=== PATIENT | male | born 1940 | race Caucasian/White ===

== ENCOUNTER → 2020-11-26 09:24 | Outpatient (CLI) | payer MEDICARE, SELFPAY ==
[2020-11-26 16:56] LABS: SARS-CoV-2 RNA PCR Negative
== END ==
PROVIDERS: PCP Internal Medicine; Visit Provider Nurse Practitioner
DX: R05 Cough (principal); Z20.822 Contact with and (suspected) exposure to COVID-19
CPT/HCPCS: C9803; U0003; U0005

== ENCOUNTER 2020-12-05 10:52 | Outpatient (CLI) | payer MEDICARE, SELFPAY ==
--- NOTE | ~2020-12-05 | XR_ITS ---
XR chest 2V DATE: 12/05/2020 11:11 INDICATION: Cough, dry to productive, for 6 months TECHNIQUE: PA and lateral views COMPARISON: 02/15/2014 2 view chest FINDINGS: There is bilateral hyperinflation and relative flattening the diaphragm, consistent with CO PD. There is atelectasis and/or consolidation at the anterior segment of the right upper lobe, which may be consistent with pneumonia. Obstructing endobronchial lesion is not excluded. Continued short-term radiographic follow-up in 2-3 weeks is recommended to ensure complete clearing. This does not clear, then CT thorax would be recommended. The lungs otherwise are clear. Normal heart size. There is mild aortic tortuosity. Mild blunting of the right costophrenic angle may indicate small right pleural effusion. No left pleu ral effusion is evident. No pneumothorax. Diffuse osteopenia. Dextroscoliosis and degenerative spurring of the thoracic spine. There is chronic mild to moderate an terior wedging of an upper thoracic vertebral body. Multiple old right rib fracture deformities are again noted. IMPRESSION: New infiltrate and/atelectasis, anterior segment right upper lobe, which may be consisten t with pneumonia. Obstructing endobronchial lesion is not excluded. Recommend repeat chest regress in 2-3 weeks. If this does not clear, then CT thorax would be indicated. Reviewed, dictated and finalized at location B. IMPRESSION: New infiltrate and/atelectasis, anterior segment right upper lobe, which may be consistent with pneumonia. Obstructing endobronchial lesion is not excluded. Recommend repeat chest regress in 2-3 weeks. If this does not clear, then CT thorax would be indicated.
[2020-12-05 11:48] LABS: Hematocrit 39.3 % (42.0-52.0); Hemoglobin 12.4 g/dL (14.0-18.0); Mean Corpuscular HGB Conc 31.6 g/dl (32-36); Mean Corpuscular Hemoglobin 29.2 pg (26-34); Mean Corpuscular Volume 92.5 fl (80-100); Mean Platelet Volume 10.4 fl (7.4-10.4); Platelet Count Result 353 k/mm3 (150-375); Red Blood Count 4.25 M/mm3 (4.6-6.20); Red Cell Distribution Width 12.9 % (11.5-14.5); White Blood Count 15.6 K/mm3 (4.5-10.0)
[2020-12-05 12:10] LABS: Alanine Aminotransferase 13 U/L (4-50); Albumin Level 3.8 g/dL (3.5-5.1); Alkaline Phosphatase 91 U/L (38-126); Anion Gap 8 mmol/L (8-16); Aspartate Amino Transferase 22 U/L (17-59); Bilirubin,Total 0.8 mg/dL (0.2-1.3); Blood Urea Nitrogen 19 mg/dL (9-20); Carbon Dioxide 32 mmol/L (22-30); Chloride 93 mmol/L (98-107); Estimated Glomerular Filt Rate 53; Glucose 108 mg/dL (65-110); Potassium 4.3 mmol/L (3.4-5.0); Sodium 133 mmol/L (137-145)
[2020-12-05 12:42] LABS: Platelet Estimate Adequate (Adequate)
[2020-12-05 15:24] LABS: Lymphocytes Absolute Manual 0.78 K/mm3 (1.1-4.5); Monocytes Absolute Manual 1.09 K/mm3 (0.1-0.90); Monocytes Percent Manual 7 % (3-9); Neutrophils Percent Manual 88 % (46-73); Total Cells Counted 100
[2020-12-05 15:25] LABS: Hypochromasia 1+ (NORMAL)
== END 2020-12-05 10:53 | disposition home or self-care (01) ==
PROVIDERS: PCP Internal Medicine; Visit Provider Internal Medicine
DX: R05.9 Cough, unspecified (principal); R53.83 Other fatigue; R91.8 Other nonspecific abnormal finding of lung field
CPT/HCPCS: 36415; 71046; 80053; 82607; 84443; 85025

== ENCOUNTER 2020-12-19 13:43 | Outpatient (CLI) | payer MEDICARE, SELFPAY ==
--- NOTE | ~2020-12-19 | XR_ITS ---
EXAMINATION: XR chest 2V DATE: 12/19/2020 14:09 INDICATION: Pneumonia. Follow-up. TECHNIQUE: Frontal and lateral views of the chest were obtained. COMPARISON: Chest 2 views 12/05/2020 FINDINGS: There are airspace opacities in right middle lobe and anterior segment right upper lobe. No pleural effusion or pneumothorax. The heart size is normal. There are multiple old healed right rib fractures. IMPRESSION: 1. Persistent airspace opacities in right middle lobe and anterior segment right upper lobe suspiciou s for malignancy and atelectasis versus pneumonia. Chest CT with contrast is recommended. Reviewed, dictated and finalized at location A. IMPRESSION: 1. Persistent airspace opacities in right middle lobe and anterior segment righ t upper lobe suspicious for malignancy and atelectasis versus pneumonia. Chest CT with contrast is recommended.
== END 2020-12-19 13:44 | disposition home or self-care (01) ==
LOC: ANHIMG 13:45
PROVIDERS: PCP Internal Medicine; Visit Provider Nurse Practitioner
DX: J18.9 Pneumonia, unspecified organism (principal); R91.8 Other nonspecific abnormal finding of lung field
CPT/HCPCS: 71046

== ENCOUNTER 2020-12-25 09:47 | Outpatient (CLI) | payer MEDICARE, SELFPAY ==
--- NOTE | ~2020-12-25 | CT_ITS ---
EXAMINATION: CT diagnostic chest w con DATE: 12/25/2020 10:23 INDICATION: Abnormal findings on diagnostic imaging, persistent right middle lobe opacity on chest ra diograph TECHNIQUE: Transaxial computed tomographic images of the chest were obtained after the administration of 75 cc of Omnipaque 350 intravenous contrast. The dose-length product (DLP) was 177.38 mGy-cm. Ite rative reconstruction was used. COMPARISON: Chest radiographs dated 12/19/2020 and 12/05/2020 FINDINGS: The right middle lobe is essentially collapsed. There are air bronchograms without an ident ified endobronchial lesion. There are areas of cavitation at the anterior/peripheral aspect of the ri ght middle lobe. Subtle groundglass nodular opacities are seen in the right lower lobe. There is no p leural effusion or pneumothorax. No pathologically enlarged thoracic lymph nodes are identified. The heart size is normal. Cysts of the partially imaged left kidney measure up to 6 cm. There are stones of the right kidney measuring up to 6 mm. A large volume of colonic stool is noted. Fluid attenuation lesions of the liver likely represent cysts. There are bridging osteophytes at multiple levels in th e spine, consistent with diffuse idiopathic skeletal hyperostosis (DISH). IMPRESSION: 1. Near complete collapse of the right middle lobe with air bronchograms but no endobronchial lesion identified. Associated cavitation at the periphery of the right middle lobe could represent an infect ious etiology. Bronchoscopy is recommended. Reviewed, dictated and finalized at location A. IMPRESSION: 1. Near complete collapse of the right middle lobe with air bronchograms but no endobronchial lesion identified. Associated cavitation at the periphery of the right middle lobe could represent an infectious etiology. Bronchoscopy is chi mmended.
== END 2020-12-25 09:48 | disposition home or self-care (01) ==
LOC: ANHIMG 09:48
PROVIDERS: PCP Internal Medicine; Visit Provider Nurse Practitioner
DX: R91.8 Other nonspecific abnormal finding of lung field (principal); J98.19 Other pulmonary collapse
CPT/HCPCS: 71260; Q9967

== ENCOUNTER 2020-12-31 10:19 | Outpatient (CLI) | payer MEDICARE, SELFPAY | END 2020-12-31 10:20 | disposition home or self-care (01) | LOC: ANHLAB 10:20 | PROVIDERS: PCP Internal Medicine; Visit Provider Internal Medicine Pulmonary Disease | DX: R93.89 Abnormal findings on diagnostic imaging of other specified body structures (principal) | CPT/HCPCS: 87070; 87205 ==

== ENCOUNTER → 2021-01-10 00:26 | Outpatient (CLI) | payer MEDICARE, SELFPAY ==
[2021-01-10 17:39] LABS: SARS-CoV-2 RNA PCR Negative
== END ==
PROVIDERS: PCP Internal Medicine; Visit Provider Internal Medicine Pulmonary Disease
DX: Z01.812 Encounter for preprocedural laboratory examination (principal); Z20.822 Contact with and (suspected) exposure to COVID-19
CPT/HCPCS: C9803; U0003; U0005

== ENCOUNTER 2021-01-12 11:32 | Outpatient (CLI) | payer MEDICARE, SELFPAY ==
[2021-01-12 12:15] LABS: Basophils Percent Auto 0.6 % (0.2-1.2); Eosinophils Absolute Auto 0.1 K/mm3 (0-0.3); Eosinophils Percent Auto 2.2 % (0-4.4); Hematocrit 41.1 % (42.0-52.0); Hemoglobin 12.7 g/dL (14.0-18.0); Immature Granulocyte Absolute 0.01 K/mm3 (0.00-0.031); Immature Granulocyte Percent A 0.2 % (0-0.5); Lymphocytes Absolute Auto 0.74 K/mm3 (0.9-3.2); Lymphocytes Percent Auto 11.6 % (18.3-44.2); Mean Corpuscular HGB Conc 30.9 g/dl (32-36); Mean Corpuscular Hemoglobin 29.4 pg (26-34); Mean Corpuscular Volume 95.1 fl (80-100); Mean Platelet Volume 11.9 fl (7.4-10.4); Monocytes Absolute Auto 0.6 K/mm3 (0.1-0.6); Monocytes Percent Auto 9.1 % (2.6-8.5); Neutrophils Absolute Auto 4.9 K/mm3 (1.3-6.7); Neutrophils Percent Auto 76.3 % (45.5-73.1); Platelet Count Result 177 k/mm3 (150-375); Red Blood Count 4.32 M/mm3 (4.6-6.20); Red Cell Distribution Width 15.6 % (11.5-14.5); White Blood Count 6.4 K/mm3 (4.5-10.0)
[2021-01-12 12:27] LABS: INR 1.1; Prothrombin Time 13.8 Seconds (11.1-14.7)
[2021-01-12 12:28] LABS: Partial Thromboplastin Time 31.4 SECONDS (22.3-36.8)
[2021-01-12 13:21] LABS: Alanine Aminotransferase 11 U/L (4-50); Alkaline Phosphatase 91 U/L (38-126); Anion Gap 12 mmol/L (8-16); Aspartate Amino Transferase 24 U/L (17-59); Bilirubin,Total 0.6 mg/dL (0.2-1.3); Blood Urea Nitrogen 22 mg/dL (9-20); Calcium 9.1 mg/dL (8.4-10.2); Carbon Dioxide 26 mmol/L (22-30); Chloride 103 mmol/L (98-107); Estimated Glomerular Filt Rate > 60; Glucose 79 mg/dL (65-110); Potassium 4.4 mmol/L (3.4-5.0); Sodium 141 mmol/L (137-145)
== END 2021-01-12 11:33 | disposition home or self-care (01) ==
LOC: ANHLAB 11:34
PROVIDERS: PCP Internal Medicine; Visit Provider Internal Medicine Pulmonary Disease
DX: R05.9 Cough, unspecified (principal)
CPT/HCPCS: 36415; 80053; 85025; 85610; 85730

== ENCOUNTER 2021-01-13 01:45 | Day surgery (SDC) | payer MEDICARE, SELFPAY ==
[2021-01-08 12:53] VITALS: BMI 19.5
[2021-01-13] VITALS (8 sets, daily range): BP systolic 115–165; BP diastolic 54–76; PULSE 50–59; RESP 14–20; TEMP 36.1–36.8; O2SAT 100
--- NOTE | ~2021-01-13 | XR_ITS ---
XR chest 1V portable 01/13/2021 14:20 Indication: Post bronchoscopy. Procedure: AP portable chest Comparison: 01/13/2021 Findings: There is right middle lobe consolidation which may represent atelectasis or pneumonia. Ther e is lucency right lower lateral thorax which extends outside of the chest wall, consistent with a sk infold. No definite pneumothorax. Multiple healed right rib fractures. No significant effusion. Left lung clear. Borderline heart size. No acute osseous abnormality. Impression: 1: Slightly increased right middle lobe consolidation which may represent atelectasis or pneumonia. F luid from lavage is also a consideration. Reviewed, dictated and finalized at location A. GER CAFE Impression: 1: Slightly increased right middle lobe consolidation which may represent atele ctasis or pneumonia. Fluid from lavage is also a consideration.
--- NOTE | ~2021-01-13 | XR_ITS ---
EXAMINATION: XR chest 1V portable INDICATION: Right middle lobe collapse TECHNIQUE: Portable AP chest at 1133 hours COMPARISON: 12/25/2020 FINDINGS: There is mildly improved aeration of the right middle lobe. No pleural effusion or pneumoth orax is identified. The cardiomediastinal silhouette is normal. IMPRESSION: 1. Improved aeration of the right middle lobe, possibly resolving pneumonia. Reviewed, dictated and finalized at location B. N ELEVATOR OPERATOR
--- NOTE | ~2021-01-13 | XR_ITS ---
EXAMINATION: XR fl bronchoscopy w imaging INDICATION: Bronchoscopy TECHNIQUE: Single fluoroscopic image is submitted for review. Total fluoroscopic time is 67.4 seconds . COMPARISON: None available FINDINGS: Fluoroscopic image demonstrates a bronchoscope in the right lower lobe. Please refer to pro cedure note for full details. IMPRESSION: 1. Please refer to procedure note for full details. Reviewed, dictated and finalized at location B. OF MARKETING ADOMETRY
--- NOTE | 2021-01-13 09:35 | WPDANESEPPF ---
Anes - Initial Pre Proc Eval Procedure: Operation Date: 01/13/21 13:15 Proposed Procedures p Flexible Bronchoscopy w Fluoroscopy - Chris Milton MD Date/Time: 01/13/21 09:35 Surgeon: Chris Milton MD Pre Op Diagnosis: chronic cough Patient Data Age: 80 Gender: M Height: 1.75 m Weight: 60 kg Allergies Allergy/AdvReac Type Severity Reaction Status Date / Time peanut Allergy Severe Hives Verified 01/13/21 11:30 Home Medications Medication Instructions Recorded Confirmed Type mupirocin 2 % topical ointment 1 applic TOPICAL TID 10 Days #22 g 01/07/21 01/08/21 Rx finasteride 5 mg PO DAILY 01/08/21 01/08/21 History Patient hx anesthesia problems: none Family hx anesthesia problems: none Results Review: All pre-operative results and documents have been reviewed as part of the pre-operative evaluation. FORMERLY [facility], [facility] Past Medical History Medical History (Updated 01/13/21 @ 09:35 by Camilo Hartman MD) BPH (benign prostatic hyperplasia) Essential (primary) hypertension Memory loss Screening for lipid disorders Family History Family History Sibling Patient's brother is in good health Family history of malignant neoplasm Patient's brother is Father Family history of malignant neoplasm Other Diabetes mellitus Family history of heart disease in male family member before age 55 Social History Social History (Updated 01/07/21 @ 14:22 by Carlie Chahal) Smoking packs per day: 1 Smoking cigarettes per day: 20.0 Years smoked: 5 Smoking pack-years: 5.00 Smoking status: Never smoker Second hand tobacco smoke exposure: No Smoking end date: 03/07/88 Alcohol intake: former Substance use: never Substance use type: does not use Living arrangements: with family Spiritual care concerns: No Anes - Eval Final PreProcedure Day of Procedure 01/13/21 09:35 Patient weight: normal Heart: regular rate and rhythm Lungs: clear to auscultation and normal air movement Airway: Mallampati scale class II Neurological: alert and oriented Last oral intake: >/= 8 hours ASA classification: III Emergent: no Anesthetic plan: proceed Anesthesia type and monitoring: general LMA and ETT Results Review: All pre-operative results and documents have been reviewed as part of the pre-operative evaluation. Informed Consent: The patient's anesthetic plan and its attendant risks and benefits were discussed with the patient/family/POA. Questions were solicited and answers provided to the satisfaction of the patient/family/POA.
--- NOTE | 2021-01-13 11:36 | ECG_ITS ---
Measurements Intervals [place] Rate: 48 P: 55 AK: 168 QRS: 35 QRSD: 109 T: 52 QT: 450 QTc: 405 Interpretive Statements SINUS BRADYCARDIA DELAYED PRECORDIAL R/S TRANSITION ABNORMAL ECG Electronically Signed On 01-13-2021 12:12:37 COMMERCIAL TIRE SERVICE TECHNICIAN by Chad Knight D.O.
[2021-01-13] MEDS: LACTATED RINGERS 1,000 ML 150 ML IV CONT (11:41)
--- NOTE | 2021-01-13 12:47 | PM.IMHP ---
H&P: HPI History of Present Illness Date/Time: 01/13/21 12:47 Chief Complaint: cough for bronchoscopy Narrative: 01/13/21 Patient presents today for outpatient bronchoscopy. See below for details regarding symptoms. Overall patient cough has improved but cough still persists with white phlegm. No hemoptysis. Appetite improved with weight gain of 4 pounds. Denies fever, chills, rigors or chest pains. From office visit on 12/31/2020: This is a new patient encounter for collapse of the right middle lobe 81-year-old male with a history of hypertension and benign prostatic hyperplasia seen by his primary physician Dr. Abhilash Ramos on 12/02/2020 with cough for several months, fatigue, memory loss, and weight loss and a chest x-ray on 12/05/20 with infiltrate RUL and RLL new compared to 02/15/2014 and not changed with cefuroxime X [address] scan chest 12/25/20 with collapse of RML with no endobronchial mass seen and with distal cavitation. Today the patient tells me he has had a chronic cough for over 2 years. He is here by his and she helps with the interview. The cough has been worse over the last 3 months he coughs approximately 10 times a day usually lasting 1-5 minutes. Most of the time this cough is dry but intermittently he has neutral or clear colored phlegm. He has never had any hemoptysis. The cough is worse at night. Patient denies fever, chills, rigors, chest pain and no shortness of breath at rest. He does have some increased dyspnea on exertion and he has recently stopped mowing his lawn. The patient also has weight loss over the last 3-4 months from 162 lb down to 129 lb. Today he weighs 133. Patient denies any aspiration of food, prior cancers, or trauma. Patient smoked tobacco from age [age] at a half pack per day for 5 pack years. He patient was exposed has been exposed to secondhand smoke through 2005 from his current . She now smokes outside with the door closed behind her since 2005. 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 Patient is not vaccinated for COVID and is unwilling at this time because he does not believe in it. Patient has never received influenza vaccine. DATA: EXAMINATION: CT diagnostic chest w con DATE: 12/25/2020 10:23 INDICATION: Abnormal findings on diagnostic imaging, persistent right middle lobe opacity on chest radiograph TECHNIQUE: Transaxial computed tomographic images of the chest were obtained after the administration of 75 cc of Omnipaque 350 intravenous contrast. The dose-length product (DLP) was 177.38 mGy-cm. Iterative reconstruction was used. COMPARISON: Chest radiographs dated 12/19/2020 and 12/05/2020 FINDINGS: The right middle lobe is essentially collapsed. There are air bronchograms without an identified endobronchial lesion. There are areas of cavitation at the anterior/peripheral aspect of the right middle lobe. Subtle groundglass nodular opacities are seen in the right lower lobe. There is no pleural effusion or pneumothorax. No pathologically enlarged thoracic lymph nodes are identified. The heart size is normal. Cysts of the partially imaged left kidney measure up to 6 cm. There are stones of the right kidney measuring up to 6 mm. A large volume of colonic stool is noted. Fluid attenuation lesions of the liver likely represent cysts. There are bridging osteophytes at multiple levels in the spine, consistent with diffuse idiopathic skeletal hyperostosis (DISH). IMPRESSION: 1. Near complete collapse of the right middle lobe with air bronchograms but no endobronchial lesion identified. Associated cavitation at the periphery of the right middle lobe could represent an infectious etiology. Bronchoscopy is recommended. 12/19/20: INDICATION: Pneumonia. Follow-up. TECHNIQUE: Frontal and lateral views of the chest were obt
[2021-01-13] MEDS: SODIUM CHLORIDE 0.9% IV 500 ML BAG 155 ML IRRIGATION (14:07)
[2021-01-13 16:23] LABS: Appearance Bronchial Fluid Hazy; Color Bronchial Fluid Colorless; Eosinophils Bronchial Fluid 7 %; Lymphocytes Bronchial Fluid 48 %; Macrophages Bronchial Fluid 19; Neutrophils Bronchial Fluid 26 %; Source Bronchial Fluid Bronchial Lavage
== END 2021-01-13 16:10 | disposition home or self-care (01) ==
PROVIDERS: PCP Internal Medicine; Visit Provider Internal Medicine Pulmonary Disease
PROC: BB1DZZZ Fluoroscopy of Upper Airways (ICD-10-PCS; CPT 31624; principal; 2021-01-13 13:00)
DX: J98.19 Other pulmonary collapse (principal); R05.3 Chronic cough; N40.0 Benign prostatic hyperplasia without lower urinary tract symptoms; I10 Essential (primary) hypertension; R00.1 Bradycardia, unspecified; Z87.891 Personal history of nicotine dependence
CPT/HCPCS: 31623; 31628; 31624; 71045; 85999; 87015; 87070; 87071; 87102; 87106; 87116; 87205; 87206; 88104; 88108; 88160; 88305; 88312; 93005; C9803; J2704; J7040; J7120; U0003; U0005

== ENCOUNTER → 2021-01-24 08:43 | Outpatient (CLI) | payer MEDICARE, SELFPAY ==
[2021-01-24 18:14] LABS: SARS-CoV-2 RNA PCR Negative
== END ==
PROVIDERS: PCP Internal Medicine
DX: Z20.822 Contact with and (suspected) exposure to COVID-19 (principal)
CPT/HCPCS: C9803; U0003; U0005

== ENCOUNTER 2021-01-27 10:41 | Outpatient (CLI) | payer MEDICARE, SELFPAY ==
[2021-01-27 11:26] LABS: Anion Gap 6 mmol/L (8-16); Blood Urea Nitrogen 25 mg/dL (9-20); Calcium 9.3 mg/dL (8.4-10.2); Carbon Dioxide 31 mmol/L (22-30); Chloride 101 mmol/L (98-107); Cholesterol 132 mg/dL (0-200); Estimated Glomerular Filt Rate > 60; Glucose 84 mg/dL (65-110); HDL Direct 46 mg/dL; Potassium 4.6 mmol/L (3.4-5.0); Sodium 138 mmol/L (137-145); Triglycerides 80 mg/dL (<150)
[2021-01-27 11:39] LABS: LDL Cholesterol Direct 62 mg/dL
== END 2021-01-27 10:42 | disposition home or self-care (01) ==
LOC: ANHLAB 10:42
PROVIDERS: PCP Internal Medicine; Visit Provider Nurse Practitioner
DX: I10 Essential (primary) hypertension (principal); Z13.220 Encounter for screening for lipoid disorders
CPT/HCPCS: 36415; 80048; 80061

== ENCOUNTER 2021-02-09 08:53 | Outpatient (CLI) | payer MEDICARE, SELFPAY ==
--- NOTE | ~2021-02-09 | XR_ITS ---
EXAMINATION: XR chest 2V DATE: 02/09/2021 09:12 INDICATION: Abnormal chest radiograph TECHNIQUE: PA and lateral views of the chest are obtained. COMPARISON: 01/13/2021 FINDINGS: The lungs are free of acute opacities. The right middle lobe appears to be well aerated. Th ere is no pleural effusion or pneumothorax. The cardiomediastinal silhouette is normal. There are jordana dging osteophytes at multiple levels in the spine, consistent with diffuse idiopathic skeletal hypero stosis (DISH). Multiple healed right-sided rib fractures are noted. IMPRESSION: 1. Well aerated right middle lobe without acute cardiopulmonary abnormality. Reviewed, dictated and finalized at location A. FEATHER MACHINE OPERATOR
== END 2021-02-09 08:54 | disposition home or self-care (01) ==
LOC: ANHIMG 08:58
PROVIDERS: PCP Internal Medicine; Visit Provider Internal Medicine Pulmonary Disease
DX: R93.89 Abnormal findings on diagnostic imaging of other specified body structures (principal)
CPT/HCPCS: 71046

== ENCOUNTER 2021-02-09 13:43 | Outpatient (CLI) | payer MEDICARE, SELFPAY ==
[2021-02-09 15:37] LABS: SARS-CoV-2 RNA PCR Negative (Negative)
== END 2021-02-09 13:44 | disposition home or self-care (01) ==
PROVIDERS: PCP Internal Medicine
DX: Z03.818 Encounter for observation for suspected exposure to other biological agents ruled out (principal); Z20.822 Contact with and (suspected) exposure to COVID-19
CPT/HCPCS: C9803; U0003; U0005

== ENCOUNTER 2021-03-02 13:17 | Outpatient (CLI) | payer MEDICARE, SELFPAY ==
--- NOTE | ~2021-03-02 | CT_ITS ---
EXAMINATION:CT diagnostic chest wo con DATE: 03/02/2021 13:51 INDICATION: Abnormal findings on diagnostic imaging. Right middle lobe collapse. TECHNIQUE: Computed tomography (CT) of the chest was performed without intravenous contrast. Automate d exposure control and iterative reconstruction technique were employed. The dose-length product (DLP ) was 155.48 mGy-cm. COMPARISON: Chest CT 12/25/2020 FINDINGS: There is mild scarring at the lung apices. There is mild bronchiectasis in right middle lob e. There is a pneumatocele in right middle lobe. There is mild atelectasis bilaterally. Again seen is mild rounded atelectasis at right lung base. There are tree-in-bud opacities and mild groundglass op acities in right lower lobe, consistent with pneumonia. No pleural effusion. The heart size is normal . There are coronary artery calcifications. No pericardial effusion. There are cysts in the liver judie suring up to 10 mm. There are dystrophic calcifications in right adrenal gland. There are cysts in th e kidneys measuring up to 5.6 cm on the left. Partially visualized is a 4 mm stone in right kidney. T here are multiple old healed right rib fractures. There is kyphosis of thoracic spine. There are brid ging endplate osteophytes at multiple levels in the spine, consistent with diffuse idiopathic skeleta l hyperostosis (DISH). There is a hemangioma in T1 vertebral body. There is mild chronic anterior wed ging of multiple thoracic vertebral bodies. IMPRESSION: 1. Chronic mild pneumonia in right lower lobe. 2. Improved aeration of right middle lobe. Reviewed, dictated and finalized at location B. PUMPER
== END 2021-03-02 13:18 | disposition home or self-care (01) ==
PROVIDERS: PCP Internal Medicine; Visit Provider Internal Medicine Pulmonary Disease
DX: J18.9 Pneumonia, unspecified organism (principal)
CPT/HCPCS: 71250

== ENCOUNTER 2021-03-16 11:14 | Outpatient (CLI) | payer MEDICARE, SELFPAY ==
--- NOTE | ~2021-03-16 | XR_ITS ---
EXAMINATION: XR chest 2V DATE: 03/16/2021 11:29 INDICATION: Abnormal findings on diagnostic imaging. Pneumonia. TECHNIQUE: Frontal and lateral views of the chest were obtained. COMPARISON: Chest 2 views 02/09/2021, chest CT 03/02/2021 FINDINGS: There is mild scarring at right lung base. There is chronic volume loss of right hemithorax with multiple old healed right rib fractures indenting the chest wall and blunting of right lateral costophrenic angle. No pleural effusion or pneumothorax. The heart size is normal. There is kyphosis of upper thoracic spine with mild chronic anterior wedging of multiple vertebral bodies. IMPRESSION: 1. Mild scarring at right lung base. Reviewed, dictated and finalized at location B. ING ADMIN
== END 2021-03-16 11:15 | disposition home or self-care (01) ==
LOC: ANHIMG 11:18
PROVIDERS: PCP Internal Medicine; Visit Provider Internal Medicine Pulmonary Disease
DX: R93.89 Abnormal findings on diagnostic imaging of other specified body structures (principal); R91.8 Other nonspecific abnormal finding of lung field
CPT/HCPCS: 71046

== ENCOUNTER 2021-07-16 14:09 | Outpatient (CLI) | payer MEDICARE, SELFPAY ==
[2021-07-16 14:51] LABS: Anion Gap 7 mmol/L (8-16); Blood Urea Nitrogen 22 mg/dL (9-20); Calcium 8.5 mg/dL (8.4-10.2); Carbon Dioxide 28 mmol/L (22-30); Chloride 105 mmol/L (98-107); Estimated Glomerular Filt Rate 53; Glucose 92 mg/dL (65-110); Potassium 4.4 mmol/L (3.4-5.0); Sodium 140 mmol/L (137-145)
== END 2021-07-16 14:10 | disposition home or self-care (01) ==
PROVIDERS: PCP Internal Medicine; Visit Provider Nurse Practitioner
DX: R60.9 Edema, unspecified (principal)
CPT/HCPCS: 36415; 80048

== ENCOUNTER 2021-07-20 10:33 | Emergency (ER) | payer MEDICARE, SELFPAY ==
--- NOTE | ~2021-07-20 | XR_ITS ---
EXAMINATION: XR foot RT min 3V DATE: 07/20/2021 12:52 INDICATION: Right foot pain. TECHNIQUE: 4 views of right foot were obtained. COMPARISON: None. FINDINGS: Bone alignment is normal. No fracture. There is an old healed fracture deformity of fourth proximal phalanx. There is mild osteoarthritis of first metatarsophalangeal joint and some the interp halangeal joints. There is heterotopic ossification distal to lateral malleolus, likely from old inju ry. There are enthesophytes at the posterior and plantar aspects of calcaneal tuberosity. IMPRESSION: 1. Mild polyarticular osteoarthritis. Reviewed, dictated and finalized at location B.
--- NOTE | ~2021-07-20 | CT_ITS ---
EXAMINATION: CT brain wo con DATE: 07/20/2021 13:01 INDICATION: Syncope. Diplopia. TECHNIQUE: Computed tomography (CT) of the head was performed without intravenous contrast. The mA wa s adjusted according to patient size. Iterative reconstruction technique was employed. The dose-lengt h product was 605.33 mGy-cm. 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 There are scattered areas of low attenuation i n the cerebral white matter. There is no intracranial hemorrhage, acute infarction, or abnormal intra cranial mass lesion. The ventricles are normal in size. There are likely changes of ocular lens repla cement surgeries. There is mild mucosal thickening in the paranasal sinuses. The mastoid air cells ar e normal. IMPRESSION: 1. 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 2. Moderate nonspecific cerebral white matter disease, which likely represents chronic small vessel i schemic disease. Reviewed, dictated and finalized at location B. IMPRESSION: 1. 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 2. Moderate nonspecific cerebral white matter disease, which likely represents chronic small vessel ischemic disease.
--- NOTE | ~2021-07-20 | CT_ITS ---
EXAMINATION: CT thoracic lumbar wo con DATE: 07/20/2021 13:01 INDICATION: Right-sided mid back pain. TECHNIQUE: Computed tomography (CT) of the thoracic and lumbar spine was performed without intravenou s contrast. Automated exposure control and iterative reconstruction technique were employed. The dose -length product was 776.87 mGy-cm. COMPARISON: None FINDINGS: CT THORACIC SPINE: There is 12 degrees dextroscoliosis of thoracic spine. There is kyphosis of thorac ic spine. There is a hemangioma in T1 vertebral body. There is mild chronic anterior wedging of multi ple vertebral bodies. There are bridging endplate osteophytes from T7 to L1, consistent with diffuse idiopathic skeletal hyperostosis (DISH). There is mildly decreased disc height at multiple levels. Th ere is moderately decreased disc height at C5-C6. There is multilevel facet joint osteoarthritis, sev ere on the left at T2-T3. There is mild right neural foraminal stenosis at T1-T2. There is mild left neural foraminal stenosis at T1-T2 and T2-T3. No central canal stenosis. There are multiple old heale d right rib fractures. CT LUMBAR SPINE: There are stones in the kidneys measuring up to 8 mm on the right. Partially visuali zed is a 5.0 cm cyst in left kidney. There is 3 mm retrolisthesis of L5 on S1. There are Schmorl's no liliya at multiple levels. There is mildly decreased disc height at L1-L2 and L2-L3 and severely decreas ed disc height at L5-S1. The following disc levels are specifically discussed: L1-L2: The disc is bulging. There is mild bilateral facet joint osteoarthritis. There is mild bilater al neural foraminal stenosis. There is mild central canal stenosis. L2-L3: The disc is bulging. There is severe bilateral facet joint osteoarthritis. There is mild bilat eral neural foraminal stenosis. There is mild central canal stenosis. L3-L4: The disc is bulging. There is severe bilateral facet joint osteoarthritis. There is mild bilat eral neural foraminal stenosis. There is mild central canal stenosis. L4-L5: The disc is bulging. There is severe bilateral facet joint osteoarthritis. There is mild bilat eral neural foraminal stenosis. There is mild central canal stenosis. L5-S1: The disc is bulging. There is moderate bilateral facet joint osteoarthritis. There is moderate bilateral neural foraminal stenosis. There is mild central canal stenosis. IMPRESSION: 1. No fracture. 2. Severe lower lumbar spondylosis. 3. Mild thoracic spondylosis. 4. DISH. 5. Thoracic kyphosis and dextroscoliosis. Reviewed, dictated and finalized at location B.
[2021-07-20 10:59] VITALS: BP 175/95; PULSE 66; RESP 16; TEMP 36.2; O2SAT 100
[2021-07-20 11:21] VITALS: RESP 17; O2SAT 100
--- NOTE | 2021-07-20 11:21 | ECG_ITS ---
Measurements Intervals [place] Rate: 56 P: 2 ND: 137 QRS: 20 QRSD: 122 T: 47 QT: 443 QTc: 430 Interpretive Statements SINUS BRADYCARDIA INTRAVENTRICULAR CONDUCTION DELAY BASELINE ARTIFACT- I, II, III, AVR, AVL, AVF BORDERLINE ECG Electronically Signed On 07-20-2021 11:29:19 CDT by Chad Knight D.O.
--- NOTE | 2021-07-20 12:17 | ED.FALL ---
HPI - Fall General Chief Complaint: Fall Stated Complaint: Fall Yesterday, Rib Pain Time Seen by Provider: 07/20/21 11:50 History of Present Illness HPI Narrative: 81 y/o male presents to ER today after having syncopal episode at home yesterday evening. He has a history of getting near syncope with his migraines. He normally can lower himself to the ground until it resolves and doesn't full pass out. Yesterday evening the sensation came on faster than normal and he did pass out and fell backward. He hit the back of his head. He denies having any headache, neck pain or dizziness. He does report mid to lower back pain. No numbnes or tingling. No extremity weakness. Denies having any chest pain. No shortness of breath. No n/v/d. He has some pain in right 4th toe. He has been having swelling in both of his feet but says that it is actually somewhat better today. Related Data Allergies Allergy/AdvReac Type Severity Reaction Status Date / Time peanut Allergy Severe Hives Verified 07/20/21 11:35 Review of Systems Constitutional: Constitutional: Denies chills, Denies fatigue, Denies fever(s) and Denies weakness Eyes: Eyes: Reports no additional eye complaints ENT: Denies vertigo and Denies dizziness Cardiovascular: Cardiovascular: Denies chest pain, Denies rapid heart rate and Denies radiating jaw, neck or arm pain Respiratory: Respiratory: Denies chest congestion, Denies cough, Denies dyspnea and Denies wheezing Gastrointestinal: Gastrointestinal: Denies abdominal pain, Denies diarrhea, Denies nausea and Denies vomiting Genitourinary: Genitourinary: Reports no additional male genitourinary complaints Musculoskeletal: Musculoskeletal: Reports back pain and Reports arthralgias Integumentary/Breasts: Skin/Breast: Denies rash Neurologic: Denies dizziness, Reports syncope, Denies headache(s) and Denies focal weakness Psychiatric: Psychiatric: Reports no additional psychiatric complaints Endocrine: Endocrine: Reports no additional endocrine complaints and Denies fatigue PMFSH Past Medical History Medical History BPH (benign prostatic hyperplasia) Essential (primary) hypertension Memory loss Screening for lipid disorders Family History Family History Sibling Patient's brother is in good health Family history of malignant neoplasm Patient's brother is Father Family history of malignant neoplasm Other Diabetes mellitus Family history of heart disease in male family member before age 55 Social History Social History Smoking packs per day: 1 Smoking cigarettes per day: 20.0 Years smoked: 5 Smoking pack-years: 5.00 Second hand tobacco smoke exposure: No Smoking end date: 03/07/88 Alcohol intake: former Substance use: never Substance use type: does not use Spiritual care concerns: No Exam Const: General: healthy appearing and alert Orientation/consciousness: patient oriented x3 HENMT: Head: normal to inspection Eyes: Conjunctivae: conjunctivae normal Pupils: Equal, round and reactive pupils present EOM: EOMs intact bilaterally Direct Ophthalmoscopy: no photophobia Neck: Neck: normal visual inspection Chest: Chest palpation & inspection: normal inspection of the chest Resp: Effort & Inspection: normal respiratory effort Auscultation: clear to auscultation bilaterally Cardio: Rate: regular rate Rhythm: regular rhythm GI: GI Palp: Yes Soft to palpation, No Tenderness to palpation present (GI) and No Guarding due to palpation present (GI) Auscultation: normal bowel sounds Back/Spine/Pelvis: Back: no CVA tenderness Skin: General skin exam: normal color Wounds: wound noted Neuro: General: patient oriented x3 and moves all extremities Extrem: General: edema bilateral (pedal 2+) Psych: Me
[2021-07-20 12:30] LABS: Basophils Percent Auto 0.5 % (0.2-1.2); Eosinophils Absolute Auto 0.1 K/mm3 (0-0.3); Eosinophils Percent Auto 1.5 % (0-4.4); Hematocrit 41.8 % (42.0-52.0); Immature Granulocyte Absolute 0.01 K/mm3 (0.00-0.031); Immature Granulocyte Percent A 0.2 % (0-0.5); Immature Platelet Fraction Pct 8.6 % (0.9-11.2); Lymphocytes Absolute Auto 0.66 K/mm3 (0.9-3.2); Lymphocytes Percent Auto 11.4 % (18.3-44.2); Mean Corpuscular HGB Conc 31.1 g/dl (32-36); Mean Corpuscular Hemoglobin 30.1 pg (26-34); Mean Corpuscular Volume 96.8 fl (80-100); Monocytes Absolute Auto 0.8 K/mm3 (0.1-0.6); Monocytes Percent Auto 13.6 % (2.6-8.5); Neutrophils Absolute Auto 4.2 K/mm3 (1.3-6.7); Neutrophils Percent Auto 72.8 % (45.5-73.1); Platelet Count Result 140 k/mm3 (150-375); Red Blood Count 4.32 M/mm3 (4.6-6.20); Red Cell Distribution Width 13.5 % (11.5-14.5); White Blood Count 5.8 K/mm3 (4.5-10.0)
[2021-07-20 12:38] VITALS: BP 148/77; PULSE 57; RESP 19; O2SAT 99
[2021-07-20 12:40] LABS: Alanine Aminotransferase 10 U/L (6-50); Albumin Level 3.9 g/dL (3.5-5.1); Alkaline Phosphatase 105 U/L (38-126); Anion Gap 2 mmol/L (8-16); Aspartate Amino Transferase 25 U/L (17-59); Bilirubin,Total 0.6 mg/dL (0.2-1.3); Blood Urea Nitrogen 19 mg/dL (9-20); Calcium 8.5 mg/dL (8.4-10.2); Carbon Dioxide 31 mmol/L (22-30); Chloride 104 mmol/L (98-107); Estimated CRCL calculation 38 ml/min; Estimated Glomerular Filt Rate 53; Glucose 93 mg/dL (65-110); Potassium 4.4 mmol/L (3.4-5.0); Sodium 137 mmol/L (137-145)
--- NOTE | 2021-07-20 13:47 | PC.NURSE ---
called lab and added on a Trop 1 BNP. spoke to Geno at [id number]
[2021-07-20 14:08] VITALS: BP 146/75; PULSE 54; RESP 15; O2SAT 100
[2021-07-20 14:12] LABS: NT Pro B Type Natriuretic Pept 413 pg/mL (5-100); Troponin I < 0.012 ng/mL (0.000-0.034)
[2021-07-20 15:35] VITALS: BP 149/79; PULSE 54; RESP 16; O2SAT 99
[2021-07-20 16:25] VITALS: BP 159/78; PULSE 51; RESP 18; O2SAT 98
== END 2021-07-20 16:25 | disposition home or self-care (01) ==
PROVIDERS: Emergency Medicine; Emergency Provider Nurse Practitioner Family; PCP Internal Medicine
DX: R55 Syncope and collapse (principal); S39.92XA Unspecified injury of lower back, initial encounter; S09.90XA Unspecified injury of head, initial encounter; M79.671 Pain in right foot; N40.0 Benign prostatic hyperplasia without lower urinary tract symptoms; I10 Essential (primary) hypertension; Z87.891 Personal history of nicotine dependence; M47.816 Spondylosis without myelopathy or radiculopathy, lumbar region; M47.814 Spondylosis without myelopathy or radiculopathy, thoracic region; M48.15 Ankylosing hyperostosis [Forestier], thoracolumbar region; M19.071 Primary osteoarthritis, right ankle and foot; R90.82 White matter disease, unspecified; R00.1 Bradycardia, unspecified; I45.9 Conduction disorder, unspecified; W18.39XA Other fall on same level, initial encounter
CPT/HCPCS: 36415; 70450; 72128; 72131; 73630; 80053; 83880; 84484; 85025; 85055; 93005; 99284

== ENCOUNTER 2021-08-31 19:57 | Observation (INO) | payer MEDICARE, SELFPAY ==
--- NOTE | ~2021-08-31 | XR_ITS ---
EXAMINATION: XR chest 2V Exam Date/Time: 08/31/2021 20:28 CDT HISTORY: AMS Comparison: 03/16/2021. RESULT: Lines, tubes, and devices: None. Lungs and pleura: Hazy round glass opacities in the mid and lower lungs. Senescent changes. Cardiomediastinal silhouette: Stable cardiomediastinal silhouette. Other: No acute osseous or upper abdominal finding. Chronic right thoracic wall deformity. IMPRESSION: Ill-defined bilateral lower lung opacities may reflect atelectasis or atypical/viral infection. Reviewed, dictated and finalized at location K. IMPRESSION: Ill-defined bilateral lower lung opacities may reflect atelectasis or atypical/ viral infection.
--- NOTE | ~2021-08-31 | CT_ITS ---
EXAMINATION: CT brain wo con DATE: 08/31/2021 20:47 INDICATION: AMS . TECHNIQUE: Computed tomography (CT) of the head was performed without intravenous contrast. The mA wa s adjusted according to patient size. Iterative reconstruction technique was employed. The dose-lengt h product was 681.00 mGy-cm. COMPARISON: 07/20/2021 FINDINGS: No acute intracranial hemorrhage or extra-axial fluid collection. No hydrocephalus, mass, or herniation. No acute ischemic infarct. Unremarkable dural venous sinus attenuation. No acute osseous abnormality. The aerated spaces are clear. Mild atrophy. Moderate chronic white matter change. Intracranial atherosclerosis. Bilateral lens repl acements. Old right cerebellar infarct. IMPRESSION: No acute intracranial process. Reviewed, dictated and finalized at location K.
--- NOTE | 2021-08-31 20:08 | ECG_ITS ---
Measurements Intervals [place] Rate: 62 P: 63 MI: 193 QRS: 37 QRSD: 121 T: 61 QT: 414 QTc: 423 Interpretive Statements SINUS RHYTHM INTRAVENTRICULAR CONDUCTION DELAY Electronically Signed On 09-01-2021 10:53:30 CDT by Lucho Mcgarry M.D.
[2021-08-31 20:17] VITALS: BP 137/79; PULSE 68; RESP 28; TEMP 36.5; O2SAT 97
[2021-08-31 20:25] LABS: Basophils Percent Auto 0.4 % (0.2-1.2); Hematocrit 42.8 % (42.0-52.0); Hemoglobin 14.1 g/dL (14.0-18.0); Immature Granulocyte Absolute 0.02 K/mm3 (0.00-0.031); Immature Granulocyte Percent A 0.4 % (0-0.5); Immature Platelet Fraction Pct 11.9 % (0.9-11.2); Lymphocytes Absolute Auto 0.36 K/mm3 (0.9-3.2); Lymphocytes Percent Auto 6.4 % (18.3-44.2); Mean Corpuscular HGB Conc 32.9 g/dl (32-36); Mean Corpuscular Hemoglobin 30.3 pg (26-34); Mean Platelet Volume 12.7 fl (7.4-10.4); Monocytes Absolute Auto 0.9 K/mm3 (0.1-0.6); Monocytes Percent Auto 15.8 % (2.6-8.5); Neutrophils Absolute Auto 4.3 K/mm3 (1.3-6.7); Platelet Count Result 88 k/mm3 (150-375); Red Blood Count 4.65 M/mm3 (4.6-6.20); Red Cell Distribution Width 13.1 % (11.5-14.5); White Blood Count 5.6 K/mm3 (4.5-10.0)
--- NOTE | 2021-08-31 20:27 | ED.AMS ---
HPI - Altered Mental Status General Chief Complaint: Altered Mental Status Stated Complaint: AMS/Weak x 2 weeks Time Seen by Provider: 08/31/21 20:05 History of Present Illness HPI narrative: 81-year-old male presenting to the emergency department for evaluation of increased generalized weakness. Family states that patient does have a recent history of pneumonia. Patient is also being worked up for Parkinson's disease. Patient does have pending follow-up with cardiology and with neurology. Family states today the patient had increased issues with following commands. Patient had decreased p.o. intake. Related Data Allergies Allergy/AdvReac Type Severity Reaction Status Date / Time peanut Allergy Severe Hives Verified 08/13/21 14:27 Review of Systems Review of Systems: ROS unobtainable: Yes unobtainable due to mental status PMFSH Past Medical History Medical History BPH (benign prostatic hyperplasia) Essential (primary) hypertension Memory loss Screening for lipid disorders Family History Family History Sibling Patient's brother is in good health Family history of malignant neoplasm Patient's brother is Father Family history of malignant neoplasm Other Diabetes mellitus Family history of heart disease in male family member before age 55 Social History Social History Smoking packs per day: 1 Smoking cigarettes per day: 20.0 Years smoked: 5 Smoking pack-years: 5.00 Smoking status: Unknown if ever smoked Second hand tobacco smoke exposure: No Smoking end date: 03/07/88 Alcohol intake: unknown Substance use: unknown Substance use type: does not use Spiritual care concerns: No Exam Narrative: APPEARANCE: Ill-appearing HEAD: normocephalic, atraumatic. EYES: PERRLA/EOMI, conjunctivae clear. NOSE: Normal no drainage THROAT: Pharynx clear, no exudate. NECK: Supple. No adenopathy, no masses. RESPIRATORY: Airway patent, respirations nonlabored. Clear to auscultation bilaterally, no rales, rhonchi, wheezing. CARDIOVASCULAR: Regular rate and rhythm without murmurs rubs or gallops. ABDOMINAL: Lower abdominal chest distention MUSCULOSKELETAL: Moves all extremities. Strength/ROM intact, No edema, No calf tenderness. NEURO: Alert. Cranial nerves II through XII intact. Grossly intact SKIN: Warm, dry. Normal Color Course Course Emergency Course: Patient does have a leukocytosis and is lymphopenic. Chest x-ray shows possible viral infection. Patient's creatinine is 1.5, which is not far from his baseline. Urine does not show evidence of urinary tract infection. Patient did test positive for COVID. Case was discussed with the hospitalist. Patient requires admission due to his excessive weakness. Family states they do not want the patient vaccinated. Vital Signs Vital signs: Vital Signs Temperature 97.7 F 08/31/21 20:17 Pulse Rate 68 08/31/21 20:17 Respiratory Rate 28 H 08/31/21 20:17 Blood Pressure 137/79 08/31/21 20:17 Pulse Oximetry 97 08/31/21 20:17 Oxygen Delivery Room Air 08/31/21 20:17 Temperature 98.3 F 09/01/21 03:41 Pulse Rate 57 L 09/01/21 03:41 Respiratory Rate 18 09/01/21 03:41 Blood Pressure 133/70 09/01/21 03:41 Pulse Oximetry 97 09/01/21 03:41 Oxygen Delivery Room Air 09/01/21 02:23 MDM - Altered Mental Status Lab Data Attestation: I reviewed the patient's lab results. Result diagrams: 08/31/21 20:17 08/31/21 20:17 Labs: Lab Results 08/31/21 08/31/21 08/31/21 Range/Units 20:17 20:17 20:17 WBC 5.6 (4.5-10.0) K/mm3 RBC 4.65 (4.6-6.20) M/mm3 Hgb 14.1 (14.0-18.0) g/dL Hct 42.8 (42.0-52.0) % MCV 92.0 (80-100) fl MCH 30.3 (26-34) pg MCHC 32.9 (32-36) g/dl RDW 13.1
[2021-08-31 20:33] LABS: Alanine Aminotransferase 15 U/L (6-50); Albumin Level 4.1 g/dL (3.5-5.1); Alkaline Phosphatase 104 U/L (38-126); Anion Gap 6 mmol/L (8-16); Aspartate Amino Transferase 41 U/L (17-59); Bilirubin,Total 0.8 mg/dL (0.2-1.3); Blood Urea Nitrogen 24 mg/dL (9-20); Calcium 8.4 mg/dL (8.4-10.2); Carbon Dioxide 30 mmol/L (22-30); Chloride 95 mmol/L (98-107); Estimated CRCL calculation 32 ml/min; Estimated Glomerular Filt Rate 45; Glucose 103 mg/dL (65-110); Potassium 4.1 mmol/L (3.4-5.0); Sodium 131 mmol/L (137-145)
[2021-08-31 20:34] LABS: Lactic Acid Reflex 1.6 mmol/L (0.7-2.0)
[2021-08-31 20:51] LABS: Platelet Estimate Decreased (Adequate)
[2021-08-31 21:39] LABS: Appearance Urine Clear (Clear); Bilirubin Urine Negative (Negative); Blood Urine 2+ (Negative); Color Urine Yellow (Yellow); Glucose Urine UA Negative (Negative); Ketones Urine Negative (Negative); Leukocyte Esterase Ur Negative LEU/UL (Negative); Nitrate Urine Negative (Negative); Protein Urine Negative (Negative); Urobilinogen Urine 0.2 mg/dL (<2.0); pH Urine 5.5 (5.0-9.0)
[2021-08-31 21:45] LABS: RBC Urine >75 /hpf (0-2); WBC Urine 0-3 /hpf
[2021-08-31 21:46] LABS: SARS-CoV-2 RNA PCR Positive
[2021-08-31 21:47] LABS: Add Urine Microscopic? YES
[2021-08-31 22:14] VITALS: BP 139/84; PULSE 68; RESP 20; O2SAT 97
--- NOTE | 2021-08-31 22:15 | PC.NURSE ---
Pt moved from H3 into ED 10, first available private room since pt's Covid test resulted positive.
--- NOTE | 2021-08-31 22:30 | PC.NURSE ---
Report received lucille Pizano RN
[2021-08-31 23:13] VITALS: O2SAT 98
[2021-08-31 23:24] VITALS: BP 140/71; PULSE 62; RESP 15; O2SAT 98
[2021-08-31] MEDS: SODIUM CHLORIDE 0.9% IV 1,000 ML 75 ML IV CONT (23:28)
[2021-09-01] VITALS (8 sets, daily range): BP systolic 109–151; BP diastolic 59–80; PULSE 52–91; RESP 16–20; TEMP 36.1–36.8; O2SAT 95–100; BMI 24.0; BMI 22.4
--- NOTE | 2021-09-01 09:00 | PM.IMHP ---
H&P: HPI History of Present Illness Date/Time: 09/01/21 09:00 Chief Complaint: Weakness Narrative: Darwin Mchugh Sr. is a 81 yo male with medical history of BPH, hypertension, former smoker and is reportedly being evaluated for Parkinson disease. He presented to the ED, from home, for evaluation of increasing weakness and somnolence. The patient is AOx2-3, but a poor historian. He has c/o cough with yellow sputum and bilateral lower extremity edema for 2 weeks, but denies chest pain, SOB, [place], orthopnea, paroxysmal nocturnal dyspnea, fever, chills, abdominal pain, N/V/D, constipation, dysuria, hematuria, paresthesia, slurred speech, vision changes, [place] or sinus congestion. He does endorse prior concussion >20 years ago with subsequent loss of smell. He denies appetite changes. In the ED, his vitals were stable. Lab work demonstrated low platelets 88, mildly elevated BUN 25, creatinine 1.5, and GFR 45. UA was negative for acute infection, but did show 3+ blood. CT head showed old cerebellar infarct, also noted on 07/20/[address], but no acute findings. Chest x-ray had bilateral lower lobe opacities. He was COVID19 PCR positive. He reports his son and granddaughter were diagnosed with COVID19 approximately 1 month ago. He is unvaccinated. He was started on IV fluids and referred for observation. Review of Systems Review of Systems: All systems reviewed & are unremarkable except as noted in HPI and below PMFSH Past Medical History Medical History (Updated 09/01/21 @ 14:42 by Sara Mehta APRN) BPH (benign prostatic hyperplasia) Essential (primary) hypertension Memory loss Screening for lipid disorders Family History Family History Sibling Patient's brother is in good health Family history of malignant neoplasm Patient's brother is Father Family history of malignant neoplasm Other Diabetes mellitus Family history of heart disease in male family member before age 55 Social History Social History (Updated 09/01/21 @ 13:21 by Sara Mehta APRN) Smoking packs per day: 1 Smoking cigarettes per day: 20.0 Years smoked: 5 Smoking pack-years: 5.00 Smoking status: Former smoker Second hand tobacco smoke exposure: No Smoking end date: 03/07/88 Alcohol intake: former Substance use: never Living arrangements: with family Additional living arrangements comments: spouse Gender identity (if verbalized by the patient): Male Spiritual care concerns: No Meds Home Medications and Allergies Home Medications Medication Instructions Recorded Confirmed Type finasteride 5 mg tablet 5 mg PO DAILY #90 tabs 08/06/21 08/13/21 Rx Allergies Allergy/AdvReac Type Severity Reaction Status Date / Time peanut Allergy Severe Hives Verified 08/13/21 14:27 Vital Signs Vital Signs - 24 hr 08/31/21 20:17 08/31/21 22:14 08/31/21 23:13 Temperature 97.7 F Pulse Rate 68 68 Respiratory Rate 28 H 20 Blood Pressure 137/79 139/84 Pulse Oximetry 97 97 98 Oxygen Delivery Room Air Room Air 08/31/21 23:24 09/01/21 00:19 09/01/21 00:35 Temperature 98.1 F Pulse Rate 62 62 62 Respiratory Rate 15 20 18 Blood Pressure 140/71 134/71 151/71 H Pulse Oximetry 98 100 Oxygen Delivery 09/01/21 02:23 09/01/21 02:23 09/01/21 03:41 Temperature 98.3 F Pulse Rate 57 L Respiratory Rate 18 Blood Pressure 133/70 Pulse Oximetry 98 98 97 Oxygen Delivery Room Air Room Air 09/01/21 06:00 Temperature 97.4 F L Pulse Rate 63 Respiratory Rate 16 Blood Pressure 116/70 Pulse Oximetry 97 Oxygen Delivery Exam Narrative: GENERAL: NAD, cooperative, frail older adult male. HEENT: Normocephalic, atraumatic, anicteric. PERRL. EOM intact. [place] of hearing. Mucous membranes dry. NECK:? Supple. Thyroid without nodularity. No JVD or lymphadenopathy. CV: Normal S1, S2,? regular rate and rhythm. No murmurs, gal
[2021-09-01] MEDS: guaiFENesin 12 HR 600 MG TABCR PO (20:12)
[2021-09-02 00:08] VITALS: BP 155/72; PULSE 59; RESP 18; TEMP 36.1; O2SAT 100
[2021-09-02] MEDS: SODIUM CHLORIDE 0.9% IV 1,000 ML 75 ML IV CONT (00:36)
[2021-09-02 04:00] VITALS: BP 131/88; PULSE 61; RESP 18; TEMP 36.4; O2SAT 97
[2021-09-02 08:00] VITALS: BP 139/61; PULSE 61; RESP 14; TEMP 36.3; O2SAT 100
[2021-09-02 08:04] LABS: Hematocrit 44.4 % (42.0-52.0); Hemoglobin 14.2 g/dL (14.0-18.0); Immature Platelet Fraction Pct 12.5 % (0.9-11.2); Mean Corpuscular Hemoglobin 29.8 pg (26-34); Mean Corpuscular Volume 93.1 fl (80-100); Mean Platelet Volume 12.5 fl (7.4-10.4); Platelet Count Result 79 k/mm3 (150-375); Red Blood Count 4.77 M/mm3 (4.6-6.20); Red Cell Distribution Width 13.2 % (11.5-14.5); White Blood Count 4.9 K/mm3 (4.5-10.0)
[2021-09-02 08:15] LABS: CRP 4.1 mg/dL (<1.0); Cholesterol 95 mg/dL (0-200); HDL Direct 35 mg/dL; Triglycerides 60 mg/dL (<150)
[2021-09-02 08:16] LABS: Alanine Aminotransferase 20 U/L (6-50); Albumin Level 3.2 g/dL (3.5-5.1); Alkaline Phosphatase 94 U/L (38-126); Anion Gap 6 mmol/L (8-16); Aspartate Amino Transferase 52 U/L (17-59); Bilirubin,Total 0.8 mg/dL (0.2-1.3); Blood Urea Nitrogen 19 mg/dL (9-20); Carbon Dioxide 27 mmol/L (22-30); Chloride 102 mmol/L (98-107); Estimated CRCL calculation 40 ml/min; Estimated Glomerular Filt Rate 58; Glucose 98 mg/dL (65-110); Potassium 3.7 mmol/L (3.4-5.0); Sodium 135 mmol/L (137-145)
[2021-09-02 08:23] LABS: LDL Cholesterol Direct 35 mg/dL
[2021-09-02] MEDS: FINASTERIDE 5 MG TABLET PO (09:13)
[2021-09-02] MEDS: guaiFENesin 12 HR 600 MG TABCR PO ×2 (09:13→20:34)
[2021-09-02] MEDS: BENZONATATE 100 MG CAPSULE PO (09:13)
[2021-09-02] MEDS: CYANOCOBALAMIN INJ 1,000 MCG/ML VIAL 1000 MCG IM (09:14)
[2021-09-02 10:07] LABS: Procalcitonin 0.2 ng/mL
--- NOTE | 2021-09-02 11:33 | P.PNIM_ITS ---
Progress Note: A&P Assessment and Plan (1) Weakness generalized: Code(s): R53.1 - Weakness Status: Acute Assessment and Plan: * Likely secondary to COVID19 infection and dehydration * Consult PT/OT * Old cerebellar stoke noted on head CT from 07/20/2021. No prior head imaging before this. * Check lipid panel. * BP stable. * Will hold off on aspirin given thrombocytopenia. (2) Acute kidney injury: Code(s): N17.9 - Acute kidney failure, unspecified Status: Acute Assessment and Plan: * Likely secondary to acute illness and dehydration. May be a component of chronic kidney disease. GFR 53 to 45 this admission. * Continue IV hydration. * Repeat CMP tomorrow (3) COVID: Code(s): U07.1 - COVID-19 Status: Acute Assessment and Plan: * Covid19 PCR positive. Patient denies vaccinations. He reports c/o cough and weakness x2 weeks. * CXR with bilateral lower lung opacities. No leukocytosis or fevers. Bacterial pneumonia thought less likely. Hold antibiotics. * No supplemental O2 needs and spO2>94% on room air. Remdesivir and dexamethasone not indicated. * Monitor respiratory status. * PLT 88 and unable to anticoagulate. * Monitor serum electrolytes, CRP, Lactic acid, troponin, CBC, WBC, temperature curve and follow cultures * Hold IV abx, minimal leuokocytosis, if patient appears to have a bacterial pneumonia, IV Ceftriaxone 2 gram IV q24hr and Azithromycin 500mg IV 24 hours will be initiated * Pt is not a candidate for Remdesivir and Dexamethasone * P.r.n. albuterol * If oxygen requirement increase, consider baricitinib (DAVID inhibtor) 4 mg PO daily for 14 days, or until discharge. (4) Adult failure to thrive: Code(s): R62.7 - Adult failure to thrive Status: Acute Assessment and Plan: * Consult size stamper. * Regular diet with Ensure clear. (5) Thrombocytopenia: Code(s): D69.6 - Thrombocytopenia, unspecified Status: Acute Assessment and Plan: * Likely secondary to viral infection * Monitor for bleeding. * CBC in am. (6) BPH (benign prostatic hyperplasia): Code(s): N40.0 - Benign prostatic hyperplasia without lower urinary tract symptoms Status: Chronic Assessment and Plan: * Continue finasteride * Monitor urine output * If renal function continues to be elevated despite fluids, will evaluate for urinary obstruction (7) Memory loss: Code(s): R41.3 - Other amnesia Status: Chronic Assessment and Plan: * Reportedly being evaluated for Parkinson disease. * To be aware Subjective Date/time seen: 09/02/21 11:33 Interval history: Patient is disoriented to time and place. Patient has repetitive and statements and wants to work on projects. He is extremely confused. Patient is originally from home. Patient reportedly is alert enough for mental capabilities to live at home until recently. Approximately 4 months ago his significant other was bringing to the doctor for further workup for Parkinson's and/or dementia. Patient may have been declining over the past several months. He is weak and will require physical therapy and occupational therapy. Patient may benefit from placement. Patient currently does not have any shortness of breath, chest pain, fever, rigors, chills, nausea, vomiting upset stomach or diarrhea. Nicolas hernandez reports he is within his normal health, although he is a poor historian. Review of Syst
--- NOTE | 2021-09-02 11:33 | PM.IMPN ---
Progress Note: A&P Assessment and Plan (1) Weakness generalized: Code(s): R53.1 - Weakness Status: Acute Assessment and Plan: Likely secondary to COVID19 infection and dehydration Consult PT/OT Old cerebellar stoke noted on head CT from 07/20/2021. No prior head imaging before this. Check lipid panel. BP stable. Will hold off on aspirin given thrombocytopenia. (2) Acute kidney injury: Code(s): N17.9 - Acute kidney failure, unspecified Status: Acute Assessment and Plan: Likely secondary to acute illness and dehydration. May be a component of chronic kidney disease. GFR 53 to 45 this admission. Continue IV hydration. Repeat CMP tomorrow (3) COVID: Code(s): U07.1 - COVID-19 Status: Acute Assessment and Plan: Covid19 PCR positive. Patient denies vaccinations. He reports c/o cough and weakness x2 weeks. CXR with bilateral lower lung opacities. No leukocytosis or fevers. Bacterial pneumonia thought less likely. Hold antibiotics. No supplemental O2 needs and spO2>94% on room air. Remdesivir and dexamethasone not indicated. Monitor respiratory status. PLT 88 and unable to anticoagulate. Monitor serum electrolytes, CRP, Lactic acid, troponin, CBC, WBC, temperature curve and follow cultures Hold IV abx, minimal leuokocytosis, if patient appears to have a bacterial pneumonia, IV Ceftriaxone 2 gram IV q24hr and Azithromycin 500mg IV 24 hours will be initiated Pt is not a candidate for Remdesivir and Dexamethasone P.r.n. albuterol If oxygen requirement increase, consider baricitinib (DAVID inhibtor) 4 mg PO daily for 14 days, or until discharge. (4) Adult failure to thrive: Code(s): R62.7 - Adult failure to thrive Status: Acute Assessment and Plan: Consult receptionist secretary. Regular diet with Ensure clear. (5) Thrombocytopenia: Code(s): D69.6 - Thrombocytopenia, unspecified Status: Acute Assessment and Plan: Likely secondary to viral infection Monitor for bleeding. CBC in am. (6) BPH (benign prostatic hyperplasia): Code(s): N40.0 - Benign prostatic hyperplasia without lower urinary tract symptoms Status: Chronic Assessment and Plan: Continue finasteride Monitor urine output If renal function continues to be elevated despite fluids, will evaluate for urinary obstruction (7) Memory loss: Code(s): R41.3 - Other amnesia Status: Chronic Assessment and Plan: Reportedly being evaluated for Parkinson disease. To be aware Subjective Date/time seen: 09/02/21 11:33 Interval history: Patient is disoriented to time and place. Patient has repetitive and statements and wants to work on projects. He is extremely confused. Patient is originally from home. Patient reportedly is alert enough for mental capabilities to live at home until recently. Approximately 4 months ago his significant other was bringing to the doctor for further workup for Parkinson's and/or dementia. Patient may have been declining over the past several months. He is weak and will require physical therapy and occupational therapy. Patient may benefit from placement. Patient currently does not have any shortness of breath, chest pain, fever, rigors, chills, nausea, vomiting upset stomach or diarrhea. Patient reports he is within his normal health, although he is a poor historian. Review of Systems Review of Systems: All systems reviewed & are unremarkable except as noted in HPI and below Exam Narrative: GENERAL: NAD, cooperative, frail older adult male. Disoriented to time and place, alert to self HEENT: Normocephalic, atraumatic, anicteric. PERRL. EOM intact. [place] of hearing. Mucous membranes dry. NECK:? Supple. Thyroid without nodularity. No JVD or lymphadenopathy. CV: Normal S1, S2,? regular rate and rhythm. No murmurs, gallops or rubs. RESP: CTAB, Norm
[2021-09-02 12:00] VITALS: BP 135/66; PULSE 53; RESP 18; TEMP 35.9; O2SAT 100
[2021-09-02 12:23] VITALS: BMI 22.4
[2021-09-02 16:00] VITALS: BP 133/69; PULSE 56; RESP 18; TEMP 36.1; O2SAT 100
[2021-09-02 20:00] VITALS: BP 131/68; PULSE 66; RESP 18; TEMP 37.5; O2SAT 94
[2021-09-03] VITALS: BP 120/62; PULSE 60; RESP 16; TEMP 37.1; O2SAT 98
[2021-09-03 03:39] VITALS: O2SAT 96
[2021-09-03 04:00] VITALS: BP 129/70; PULSE 99; RESP 18; TEMP 36.4; O2SAT 96
[2021-09-03 07:13] LABS: Eosinophils Percent Auto 0.2 % (0-4.4); Hematocrit 43.3 % (42.0-52.0); Hemoglobin 13.9 g/dL (14.0-18.0); Immature Granulocyte Absolute 0.02 K/mm3 (0.00-0.031); Immature Granulocyte Percent A 0.5 % (0-0.5); Immature Platelet Fraction Pct 11.8 % (0.9-11.2); Lymphocytes Absolute Auto 0.45 K/mm3 (0.9-3.2); Lymphocytes Percent Auto 10.2 % (18.3-44.2); Mean Corpuscular HGB Conc 32.1 g/dl (32-36); Mean Corpuscular Hemoglobin 30.2 pg (26-34); Mean Corpuscular Volume 93.9 fl (80-100); Mean Platelet Volume 12.9 fl (7.4-10.4); Monocytes Absolute Auto 0.6 K/mm3 (0.1-0.6); Monocytes Percent Auto 13.4 % (2.6-8.5); Neutrophils Absolute Auto 3.3 K/mm3 (1.3-6.7); Neutrophils Percent Auto 75.7 % (45.5-73.1); Platelet Count Result 93 k/mm3 (150-375); Red Blood Count 4.61 M/mm3 (4.6-6.20); Red Cell Distribution Width 13.2 % (11.5-14.5); White Blood Count 4.4 K/mm3 (4.5-10.0)
[2021-09-03 07:17] LABS: Alanine Aminotransferase 19 U/L (6-50); Albumin Level 3.6 g/dL (3.5-5.1); Alkaline Phosphatase 98 U/L (38-126); Anion Gap 5 mmol/L (8-16); Aspartate Amino Transferase 57 U/L (17-59); Bilirubin,Total 0.7 mg/dL (0.2-1.3); Blood Urea Nitrogen 15 mg/dL (9-20); Calcium 8.4 mg/dL (8.4-10.2); Carbon Dioxide 30 mmol/L (22-30); Chloride 104 mmol/L (98-107); Estimated CRCL calculation 37 ml/min; Estimated Glomerular Filt Rate 53; Glucose 103 mg/dL (65-110); Potassium 4.1 mmol/L (3.4-5.0); Sodium 139 mmol/L (137-145)
[2021-09-03 08:00] VITALS: BP 133/75; PULSE 60; RESP 19; TEMP 37.2; O2SAT 98
[2021-09-03] MEDS: CYANOCOBALAMIN INJ 1,000 MCG/ML VIAL 1000 MCG IM (08:30)
[2021-09-03] MEDS: FINASTERIDE 5 MG TABLET PO (08:31)
[2021-09-03] MEDS: guaiFENesin 12 HR 600 MG TABCR PO (08:31)
[2021-09-03 12:00] VITALS: BP 129/71; PULSE 58; RESP 20; TEMP 37.6; O2SAT 97
--- NOTE | 2021-09-03 13:35 | P.PNIM_ITS ---
Progress Note: A&P Assessment and Plan (1) Weakness generalized: Code(s): R53.1 - Weakness Status: Acute Assessment and Plan: * Likely secondary to COVID19 infection * Consult PT/OT * Old cerebellar stoke noted on head CT from 07/20/2021. No prior head imaging before this. * lipid panel WNL * BP stable. * Will hold off on aspirin given thrombocytopenia. (2) Acute kidney injury: Code(s): N17.9 - Acute kidney failure, unspecified Status: Acute Assessment and Plan: * renal function showed slight improvement. * discontinue IV hydration. * Repeat CMP tomorrow (3) COVID: Code(s): U07.1 - COVID-19 Status: Acute Assessment and Plan: * Covid19 PCR positive. Patient denies vaccinations. He reports c/o cough and weakness x2 weeks. * CXR with bilateral lower lung opacities. No leukocytosis or fevers. Bacterial pneumonia thought less likely. Hold antibiotics. * No supplemental O2 needs and spO2>94% on room air. Remdesivir and dexamethasone not indicated. * Monitor respiratory status. * PLT 88 and unable to anticoagulate. * Monitor serum electrolytes, CRP, Lactic acid, troponin, CBC, WBC, temperature curve and follow cultures * Hold IV abx, minimal leuokocytosis, if patient appears to have a bacterial pneumonia, IV Ceftriaxone 2 gram IV q24hr and Azithromycin 500mg IV 24 hours will be initiated * Pt is not a candidate for Remdesivir and Dexamethasone * P.r.n. albuterol (4) Adult failure to thrive: Code(s): R62.7 - Adult failure to thrive Status: Acute Assessment and Plan: * Consult managed care nurse. * Regular diet with Ensure clear. (5) Thrombocytopenia: Code(s): D69.6 - Thrombocytopenia, unspecified Status: Acute Assessment and Plan: * Likely secondary to viral infection * Monitor for bleeding. * CBC in am. (6) BPH (benign prostatic hyperplasia): Code(s): N40.0 - Benign prostatic hyperplasia without lower urinary tract symptoms Status: Chronic Assessment and Plan: * Continue finasteride * Monitor urine output * If renal function continues to be elevated despite fluids, will evaluate for urinary obstruction (7) Memory loss: Code(s): R41.3 - Other amnesia Status: Chronic Assessment and Plan: * Reportedly being evaluated for Parkinson disease. * To be aware Subjective Date/time seen: 09/03/21 13:35 patient is alert to self and intermittent time. Patient is currently diagnosed with COVID-19 and is not experiencing any respiratory or GI symptoms. However the patient is cognitively impaired. Unsure if he is able to care for himself at home. Discussing management with his significant other who reports she will take a home however this may be unsafe discharge. Pending further discussion with family for possible placement. Patient denied any chest pain, shortness of breath, nausea, vomiting, upset stomach or diarrhea this morning. Continue to monitor and have him work with physical therapy and occupational therapy. RNs did report the patient can be spontaneous and not follow commands consistently. Review of Systems Review of Systems: All systems reviewed & are unremarkable except as noted in HPI and below Exam Narrative: GENERAL: NAD, cooperative, frail older adult male. Disoriented to time and place, alert to self HEENT: Normocephalic, atraumatic, anic
--- NOTE | 2021-09-03 13:35 | PM.IMPN ---
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 No prior head imaging before this. lipid panel WNL BP stable. Will hold off on aspirin given thrombocytopenia. (2) Acute kidney injury: Code(s): N17.9 - Acute kidney failure, unspecified Status: Acute Assessment and Plan: renal function showed slight improvement. discontinue IV hydration. Repeat CMP tomorrow (3) COVID: Code(s): U07.1 - COVID-19 Status: Acute Assessment and Plan: Covid19 PCR positive. Patient denies vaccinations. He reports c/o cough and weakness x2 weeks. CXR with bilateral lower lung opacities. No leukocytosis or fevers. Bacterial pneumonia thought less likely. Hold antibiotics. No supplemental O2 needs and spO2>94% on room air. Remdesivir and dexamethasone not indicated. Monitor respiratory status. PLT 88 and unable to anticoagulate. Monitor serum electrolytes, CRP, Lactic acid, troponin, CBC, WBC, temperature curve and follow cultures Hold IV abx, minimal leuokocytosis, if patient appears to have a bacterial pneumonia, IV Ceftriaxone 2 gram IV q24hr and Azithromycin 500mg IV 24 hours will be initiated Pt is not a candidate for Remdesivir and Dexamethasone P.r.n. albuterol (4) Adult failure to thrive: Code(s): R62.7 - Adult failure to thrive Status: Acute Assessment and Plan: Consult baler operator. Regular diet with Ensure clear. (5) Thrombocytopenia: Code(s): D69.6 - Thrombocytopenia, unspecified Status: Acute Assessment and Plan: Likely secondary to viral infection Monitor for bleeding. CBC in am. (6) BPH (benign prostatic hyperplasia): Code(s): N40.0 - Benign prostatic hyperplasia without lower urinary tract symptoms Status: Chronic Assessment and Plan: Continue finasteride Monitor urine output If renal function continues to be elevated despite fluids, will evaluate for urinary obstruction (7) Memory loss: Code(s): R41.3 - Other amnesia Status: Chronic Assessment and Plan: Reportedly being evaluated for Parkinson disease. To be aware Subjective Date/time seen: 09/03/21 13:35 patient is alert to self and intermittent time. Patient is currently diagnosed with COVID-19 and is not experiencing any respiratory or GI symptoms. However the patient is cognitively impaired. Unsure if he is able to care for himself at home. Discussing management with his significant other who reports she will take a home however this may be unsafe discharge. Pending further discussion with family for possible placement. Patient denied any chest pain, shortness of breath, nausea, vomiting, upset stomach or diarrhea this morning. Continue to monitor and have him work with physical therapy and occupational therapy. RNs did report the patient can be spontaneous and not follow commands consistently. Review of Systems Review of Systems: All systems reviewed & are unremarkable except as noted in HPI and below Exam Narrative: GENERAL: NAD, cooperative, frail older adult male. Disoriented to time and place, alert to self HEENT: Normocephalic, atraumatic, anicteric. PERRL. EOM intact. Bath of hearing. Mucous membranes dry. NECK:? Supple. Thyroid without nodularity. No JVD or lymphadenopathy. CV: Normal S1, S2,? regular rate and rhythm. No murmurs, gallops or rubs. RESP: CTAB, Normal work of breathing. ABD: soft, nondistended in 4 quadrants. Normoactive bowel sounds. No guarding. EXTREMITIES: Warm and well perfused, no clubbing, cyanosis, or edema. Poor turgor. SKIN: warm, dry and intact. Poor turgor. NEURO: AO x2 person and time??? . Flat affect. Neutral mood. Follows co
--- NOTE | 2021-09-03 14:35 | P.DS_ITS ---
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 No prior head imaging be fore this. * lipid panel WNL * BP stable. * Will hold off on aspirin given thrombocytopenia. (2) Acute kidney injury: Code(s): N17.9 - Acute kidney failure, unspecified Status: Acute Assessment and Plan: * renal function showed slight improvement. * discontinue IV hydration. * Repeat CMP tomorrow (3) COVID: Code(s): U07.1 - COVID-19 Status: Acute Assessment and Plan: * Covid19 PCR positive. Patient denies vaccinations. He reports c/o cough and weakness x2 weeks. * CXR with bilateral lower lung opacities. No leukocytosis or fevers. Bacterial pneumonia thought less likely. Hold antibiotics. * No supplemental O2 needs and spO2>94% on room air. Remdesivir and dexamethasone not indicated. * Monitor respiratory status. * PLT 88 and unable to anticoagulate. * Monitor serum electrolytes, CRP, Lactic acid, troponin, CBC, WBC, temperature curve and follow cultures * Hold IV abx, minimal leuokocytosis, if patient appears to have a bacterial pneumonia, IV Ceftriaxone 2 gram IV q24hr and Azithromycin 500mg IV 24 hours will be initiated * Pt is not a candidate for Remdesivir and Dexamethasone * P.r.n. albuterol (4) Adult failure to thrive: Code(s): R62.7 - Adult failure to thrive Status: Acute Assessment and Plan: * Consult hl7 developer. * Regular diet with Ensure clear. (5) Thrombocytopenia: Code(s): D69.6 - Thrombocytopenia, unspecified Status: Acute Assessment and Plan: * Likely secondary to viral infection * Monitor for bleeding. * CBC in am. (6) BPH (benign prostatic hyperplasia): Code(s): N40.0 - Benign prostatic hyperplasia without lower urinary tract symptoms Status: Chronic Assessment and Plan: * Continue finasteride * Monitor urine output * If renal function continues to be elevated despite fluids, will evaluate for urinary obstruction (7) Memory loss: Code(s): R41.3 - Other amnesia Status: Chronic Assessment and Plan: * Reportedly being evaluated for Parkinson disease. * To be aware DS: Summary Hospital Course Reason for hospitalization: Altered mental status [id number] currently being treated for COVID-19 pneumonia Hospital Course: Patient is a 81-year-old male with a past medical history of BPH, hypertension, former smoker and who is recently being evaluated for Parkinson's disease. He presented to the [place] emergency department from home for further evaluation of increasing weakness, somnolence and altered mental status. Patient was only alert and oriented x2 in the emergency department he is a poor historian. He did complain of a cough with yellow sputum and bilateral lower extremity edema for 2 weeks but denied any chest pain, she had additional shortness of breath, orthopnea, paroxysmal nocturnal dyspnea, fever, chills abdominal pain. He denies any N/V/D and
--- NOTE | 2021-09-03 14:35 | PM.DS ---
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 No prior head imaging before this. lipid panel WNL BP stable. Will hold off on aspirin given thrombocytopenia. (2) Acute kidney injury: Code(s): N17.9 - Acute kidney failure, unspecified Status: Acute Assessment and Plan: renal function showed slight improvement. discontinue IV hydration. Repeat CMP tomorrow (3) COVID: Code(s): U07.1 - COVID-19 Status: Acute Assessment and Plan: Covid19 PCR positive. Patient denies vaccinations. He reports c/o cough and weakness x2 weeks. CXR with bilateral lower lung opacities. No leukocytosis or fevers. Bacterial pneumonia thought less likely. Hold antibiotics. No supplemental O2 needs and spO2>94% on room air. Remdesivir and dexamethasone not indicated. Monitor respiratory status. PLT 88 and unable to anticoagulate. Monitor serum electrolytes, CRP, Lactic acid, troponin, CBC, WBC, temperature curve and follow cultures Hold IV abx, minimal leuokocytosis, if patient appears to have a bacterial pneumonia, IV Ceftriaxone 2 gram IV q24hr and Azithromycin 500mg IV 24 hours will be initiated Pt is not a candidate for Remdesivir and Dexamethasone P.r.n. albuterol (4) Adult failure to thrive: Code(s): R62.7 - Adult failure to thrive Status: Acute Assessment and Plan: Consult cell preparer. Regular diet with Ensure clear. (5) Thrombocytopenia: Code(s): D69.6 - Thrombocytopenia, unspecified Status: Acute Assessment and Plan: Likely secondary to viral infection Monitor for bleeding. CBC in am. (6) BPH (benign prostatic hyperplasia): Code(s): N40.0 - Benign prostatic hyperplasia without lower urinary tract symptoms Status: Chronic Assessment and Plan: Continue finasteride Monitor urine output If renal function continues to be elevated despite fluids, will evaluate for urinary obstruction (7) Memory loss: Code(s): R41.3 - Other amnesia Status: Chronic Assessment and Plan: Reportedly being evaluated for Parkinson disease. To be aware DS: Summary Hospital Course Reason for hospitalization: Altered mental status [id number] currently being treated for COVID-19 pneumonia Hospital Course: Patient is a 81-year-old male with a past medical history of BPH, hypertension, former smoker and who is recently being evaluated for Parkinson's disease. He presented to the [place] emergency department from home for further evaluation of increasing weakness, somnolence and altered mental status. Patient was only alert and oriented x2 in the emergency department he is a poor historian. He did complain of a cough with yellow sputum and bilateral lower extremity edema for 2 weeks but denied any chest pain, she had additional shortness of breath, orthopnea, paroxysmal nocturnal dyspnea, fever, chills abdominal pain. He denies any N/V/D and constipation. Denied any headaches visual changes or slurred speech. He does endorse prior concussion approximately 20 years ago subsequent loss of smell. He denies at diet changes. In the emergency department labs and imaging were obtained which revealed a WBC of 5.6, hemoglobin 14.1, hematocrit 42.8, platelet 88, sodium 131, potassium 4.1, BUN 24, creatinine 1.5 normal LFTs and UA negative. Chest x-ray did reveal hazy ground-glass opacities in the mid lower lungs. CT of the head did not reveal acute in
--- NOTE | 2021-09-04 12:02 | PC.NURSE ---
Received call from . She states she is unable to get patient out of bed by herself. She also has questions regarding the dc instruction that pt is to receive IM injections of B12. She states she does not know how to give shots and is unable to get patient out of bed. Instructed pt I will speak to physician and call her back. She is in agreement. HH is to see pt beginning 09/10. Patient and are COVID positive.
--- NOTE | 2021-09-04 12:05 | PC.NURSE ---
Spoke with Dr. Brown regarding B12 orders. Physician states that oral B12 100 mcg daily will provide coverage for patient, as patient is unable to leave home due to COVID and inability to get out of bed even with assist. Called with oral B12. She states understanding and agreement. Spoke with Melecio AragonRN, Director of CC. I explained home situation. She will have manager long term care,that cared for patient, give a call to discuss care needs. is thankful and agreeable to speak with CC.
== END 2021-09-03 16:00 | disposition home or self-care (01) ==
LOC: ANHED 22:55 → ANH3MEDSUR 09-03 08:33
PROVIDERS: Nurse Practitioner Family; Admitting Provider Internal Medicine; Emergency Provider Emergency Medicine; PCP Internal Medicine; Visit Provider Nurse Practitioner Family
DX: N17.9 Acute kidney failure, unspecified (principal); U07.1 COVID-19; D69.6 Thrombocytopenia, unspecified; R41.3 Other amnesia; R62.7 Adult failure to thrive; R53.1 Weakness; I10 Essential (primary) hypertension; N40.0 Benign prostatic hyperplasia without lower urinary tract symptoms; Z68.22 Body mass index [BMI] 22.0-22.9, adult; Z87.891 Personal history of nicotine dependence
CPT/HCPCS: 36415; 51701; 70450; 71046; 80053; 80061; 81001; 82607; 83605; 84145; 84443; 85025; 85027; 85055; 86140; 93005; 96360; 96361; 96372; 97110; 97116; 97161; 97165; 97530; 97535; 99285; A9270; C9803; G0378; J3420; J7030; U0003; U0005

== ENCOUNTER 2021-09-24 14:38 | Outpatient (CLI) | payer MEDICARE, SELFPAY ==
--- NOTE | ~2021-09-24 | XR_ITS ---
XR chest 2V DATE: 09/24/2021 15:19 INDICATION: Unspecified foreign body in respiratory tract TECHNIQUE: PA and lateral views COMPARISON: 08/31/2021 AP and lateral views FINDINGS: Bilateral hyperinflation and increased retrosternal airspace, relative flattening the diaph ragm consistent COPD. No pulmonary infiltrate or consolidation is evident. Slight blunting of the right costophrenic angle may represent minimal right pleural effusion. No pneumothorax. Normal heart size. Mild aortic unfolding. No hilar or mediastinal enlargement. Numerous old right rib fracture deformities. Diffuse osteopenia. Dextroscoliosis and degenerative spurring of the thoracic spine. IMPRESSION: Bilateral hyperinflation suggesting COPD No active cardiopulmonary disease Reviewed, dictated and finalized at location B.
== END 2021-09-24 14:39 | disposition home or self-care (01) ==
PROVIDERS: PCP Internal Medicine; Visit Provider Internal Medicine
DX: T17.908A Unspecified foreign body in respiratory tract, part unspecified causing other injury, initial encounter (principal); R91.8 Other nonspecific abnormal finding of lung field
CPT/HCPCS: 71046

== ENCOUNTER 2021-10-07 12:12 | Outpatient (CLI) | payer MEDICARE, SELFPAY ==
[2021-10-07 12:38] LABS: Basophils Percent Auto 0.3 % (0.2-1.2); Eosinophils Absolute Auto 0.1 K/mm3 (0-0.3); Eosinophils Percent Auto 1.2 % (0-4.4); Hematocrit 39.6 % (42.0-52.0); Hemoglobin 12.3 g/dL (14.0-18.0); Immature Granulocyte Absolute 0.04 K/mm3 (0.00-0.031); Immature Granulocyte Percent A 0.4 % (0-0.5); Lymphocytes Percent Auto 7.2 % (18.3-44.2); Mean Corpuscular HGB Conc 31.1 g/dl (32-36); Mean Corpuscular Hemoglobin 29.3 pg (26-34); Mean Corpuscular Volume 94.3 fl (80-100); Mean Platelet Volume 10.9 fl (7.4-10.4); Monocytes Absolute Auto 1.2 K/mm3 (0.1-0.6); Monocytes Percent Auto 12.7 % (2.6-8.5); Neutrophils Absolute Auto 7.6 K/mm3 (1.3-6.7); Neutrophils Percent Auto 78.2 % (45.5-73.1); Platelet Count Result 263 k/mm3 (150-375); Red Cell Distribution Width 13.2 % (11.5-14.5); White Blood Count 9.8 K/mm3 (4.5-10.0)
[2021-10-07 12:51] LABS: Alanine Aminotransferase 7 U/L (6-50); Albumin Level 3.8 g/dL (3.5-5.1); Alkaline Phosphatase 106 U/L (38-126); Anion Gap 8 mmol/L (8-16); Aspartate Amino Transferase 17 U/L (17-59); Bilirubin,Total 0.7 mg/dL (0.2-1.3); Blood Urea Nitrogen 22 mg/dL (9-20); Calcium 8.3 mg/dL (8.4-10.2); Carbon Dioxide 32 mmol/L (22-30); Chloride 94 mmol/L (98-107); Estimated Glomerular Filt Rate 53; Glucose 102 mg/dL (65-110); Sodium 134 mmol/L (137-145)
== END 2021-10-07 12:13 | disposition home or self-care (01) ==
LOC: ANHLAB 12:14
PROVIDERS: PCP Internal Medicine; Visit Provider Nurse Practitioner
DX: R50.9 Fever, unspecified (principal)
CPT/HCPCS: 36415; 80053; 85025

== ENCOUNTER 2021-12-01 14:30 | Outpatient (RCR) | payer MEDICARE, SELFPAY ==
--- NOTE | 2021-10-29 13:59 | PTOPEVAL ---
PHYSICAL THERAPY INITIAL EVALUATION. Thank you for referring Darwin Isabel Mchugh Sr. to [facility].? The patient is scheduled to be seen for therapy? 2x/week for 4 weeks. Please review, sign, date and return this plan of care GOLDEN. I agree with and certify that the following plan of care is medically necessary. Referring Physician Date Attending Provider: Abhilash Ramos DO *PT Outpatient Evaluation Start: 10/29/21 Evaluation Information Diagnosis Parkinson's Dz Subjective Information Reports would like to work on Query Text:As Reported By Patient/ walking. Had fall a month ago Family Has railing in bed to assist with mobility Prior Level of Function Home Setting Home Type House,Multiple Levels Environmental Barriers Rodrigo, Hardwood,Railing, Ascend Right,Stairs, Greater than 4 Living Situation With Spouse Mobility Assistive Devices (Used Last 3 None,Walker, Rollator Months) Bathroom Environment Shower, Door Bathing Equipment Hand Held Shower Toileting Equipment None Pain Assessment Pain Score Pain Score 0: Self Report Lower Extremity Muscle Strength Testing Hip Strength Bilateral Hip Flexion Strength 4 Good Knee Strength Bilateral Knee Flexion Strength 4 Good Knee Extension Strength 4 Good Ankle Strength Bilateral Ankle Dorsiflexion Strength 4+ Good + Muscle Length Testing Nick Test Shortened Muscles Short (R) Iliopsoas,Short (L) Iliopsoas Two-Joint Hip Flexor Shortened Muscles Short (R) Rectus Femoris,Short (L) Rectus Femoris Left Hamstring Length -70 Right Hamstring Length -70 Right Prone Knee Flexor Muscle Length ( 90 Left Prone Knee Flexor Muscle Length ( 90 Muscle Length Testing Comments neutral hip ext in prone bilat Bed Mobility Assessment Overall Bed Mobility Ability Moderate Assistance X 1 Balance Assessment Tinetti Balance Assessment Tinetti Composite Score (Balance + Gait) Interpretation of Scores High risk for falls(< 19) Tinetti Fall Risk High Comments Varies with shuffling gait and improved steps depending on path and direction change 5 Time Sit to Stand Time in Seconds 40 5 Time Sit to Stand Comments Use of UEs Gait Assessment 2 Minute Walk Total Distance Walked (feet) 185 2 Minute Walk Gait Speed Score (feet/s) 1.54 Number of Breaks Required 0 2 Minute Walk Test Comments no AD difficulty with direction
--- NOTE | 2021-10-29 14:30 | OTOPEVAL ---
OCCUPATIONAL THERAPY INITIAL EVALUATION REPORT 10/29/21 Thank you for referring Darwin Isabel Mchugh Sr. to [facility].? The patient is scheduled to be seen for therapy? 1x/week for 4 weeks. Please review, sign, date and return this plan of care GOLDEN. I agree with and certify that the following plan of care is medically necessary. Referring Physician Date Referring Provider: Abhilash Ramos DO *OT Outpatient Evaluation Neurological History Hx Parkinson's Disease Yes Cardiovascular History Hx Cardiac Disorders No Significant History Respiratory History Hx Pneumonia Yes: 11/2020- COLLAPSED LUNG- Gastrointestinal History Hx Gastrointestinal Disorders No Significant History Genitourinary History Hx Benign Prostatic Hyperplasia Yes Hematological History Hx Hematological Disorders No Significant History Endocrine History Hx Endocrine Disorders No Significant History HEENT History Hx Cataracts Yes: SCHED FOR SURGERY L EYE, 02/11/21 R EYE Hx Dental Problems Yes: LOWER PARTIAL Integumentary History Hx Skin Disorders No Significant History Reproductive History Hx Reproductive Disorders No Significant History Psychosocial History Hx Depression Yes: CURRENTLY WITH ILLNESS Pain History History of Any Previous or Ongoing No Significant History Instance of Pain Anesthesia History Hx Anesthesia Reactions No Significant History Evaluation Information Problem Diagnosis Parkinson's Onset unknown Subjective Information Patient presents today with Query Text:As Reported By Patient/ his , Arianna. She states he Family was just recently dx with PD and he just got started on medications. He takes Carbidopa Levodopa 2x/day. currently helps him with dressing. They state he is independent with showers and toileting. Difficulties with fine motor tasks such as buttons, opening water bottles , tying shoes. states that prior to his hospitalization in September for COVID and PNA he was mowing the grass, driving, helping with unloading the accounting recruiter, and doing some button sewer hand. Prior Level of Function Activity Level (Last 3 Months) Hand Dominance Right Activity of Daily Living Ability Needs Some Help Cooking No C
--- NOTE | 2021-10-29 16:27 | STOPEVAL ---
Thank you for referring Darwin Mchugh to [facility].? The patient is scheduled to be seen for therapy? 2x/week for 4 weeks. Please review, sign, date and return this plan of care GOLDEN. I agree with and certify that the following plan of care is medically necessary. Referring Physician Date Attending Provider: Abhilash Ramos DO Referring Provider: Abhilash Ramos DO Therapy Assessment Status Assessment Status Assessment Status Evaluation Outpatient Past Medical History Past Medical History Source of Past Medical History Patient,Family/Significant Other Neurological History Hx Parkinson's Disease Yes Cardiovascular History Hx Cardiac Disorders No Significant History Respiratory History Hx Pneumonia Yes: 11/2020- COLLAPSED LUNG- Gastrointestinal History Hx Gastrointestinal Disorders No Significant History Genitourinary History Hx Benign Prostatic Hyperplasia Yes Hematological History Hx Hematological Disorders No Significant History Endocrine History Hx Endocrine Disorders No Significant History HEENT History Hx Cataracts Yes: SCHED FOR SURGERY L EYE, 02/11/21 R EYE Hx Dental Problems Yes: LOWER PARTIAL Integumentary History Hx Skin Disorders No Significant History Reproductive History Hx Reproductive Disorders No Significant History Psychosocial History Hx Depression Yes: CURRENTLY WITH ILLNESS Pain History History of Any Previous or Ongoing No Significant History Instance of Pain Anesthesia History Hx Anesthesia Reactions No Significant History Evaluation Information Problem Subjective Information The patient reports that he Query Text:As Reported By Patient/ has difficulty swallowing Family pills. He stated that they get stuck to his tongue and then start to dissolve on his tongue; his added that she felt that she had been putting the pills on his tongue and he was losing them in the buccal cavity of the mouth. Pain Assessment Timing of Pain Assessment Timing of Pain Assessment Assessment Self Report Self Report Pain Level 0 Pain Score Pain Score 0: Self Report Bedside Swallow Evaluation General Reports Dysphagia Yes Consistency Solid Consistency Other Swallow Amount michael cracker Method of Presentation Finger/Hand Behaviors Observed Apparently Normal Swallow Occurrence of Coughing None Vocal Quality After Swallowing Clear Swallow Palpation Results Good Swallow Initiation,Strong
--- NOTE | 2021-11-12 09:04 | PCSTNOTE ---
Patient called & cancelled scheduled appointment 11/13/21 date due to having another appointment. Resume regular schedule next week.
--- NOTE | 2021-12-01 13:41 | STOPDC ---
Assessment and note entered by Berkley Charlton STRESS TEST TECHNICIAN Evaluation Information Assessment Status Progress Reported Pain Level Pain Score 0: Self Report Assessment ST Clinical Summary The reports that patient's appetite has recently improved and he reported that he was at 123 pounds (his reported that she had weighed him at 113 pounds approximately 1 week ago). also reports that she has purchased thickener and that he has not been coughing as much since using the thickener. She added that patient has been speaking up more. She stated that his first attempt is usually too soft for her to hear but that when she asks him to repeat, he is able to repeat with adequate loudness in order for her to hear him adequately the second time. Patient reports that he does feel Speech Therapy has been beneficial for the past month. He had difficulty putting his response into words. When therapist asked specifics, he still had great difficulty expressing any improvement but eventually stated he thinks he can eat more in a period of time. When asked if he thought he was consuming more per meal or eating a little faster, he stated, It's just easier to swallow. When asked about his speech, he stated, the thinks so (and if she says so, she must be right) . The patient stated that he does not want to continue in Speech Therapy because he does not feel his swallowing has improved much but that his speech has improved but i don't talk that much. Throughout this session, patient's voice remained wet in spite of therapist instruction to clear throat and swallow. He was given regular water per cup and was noted to cough and have to clear his throat and swallow after each sip. He then was instructed to cough and swallow and he did exhibit a good cough with subsequent swallow on several occasions. Patient is being discharged this date due to lack of significant progress and inability to complete home exercise independently possibly due to memory deficit and possibly due to low motivation. His does not sit with him to complete the home exercise program but does report that she hears him practicing; at
--- NOTE | 2021-12-01 14:21 | OTOPDC ---
Assessment and note entered by Eduar Gunderson, GAURANG/Brandon, CHT Evaluation Information Assessment Status Discharge Assessment Status Progress Diagnosis Parkinson's Subjective Information Patient states that he's moving a little better than he was a month ago. He states that he has been helping his unload the provider relations coordinator. He states that his continues to dress him, but does admit that he is able to dress himself. He states that he has not been doing his HEP. Reported Pain Level Pain Score 0: Self Report Pain Score 0: Self Report Assessment OT Clinical Summary Joe Granados , is a 81 year-old, right handed male who is referred to outpatient OT with dx of Parkinson's. Patient's not present for re- assessment today. Timed activities/tests today do demonstrate a slight improvement. Overall he does continue to move slowly and deliberately. At this time it is recommended that the patient continue to be more of an active participant with ADLs and household tasks at home and to work toward daily compliance with is HEP. No further skilled OT indicated at this time. Plan of Care OT Services Indicated No
--- NOTE | 2021-12-01 15:14 | PTOPDC ---
Assessment and note entered by Lindsay Juarez, PT, DPT Evaluation Information Assessment Status Discharge Diagnosis Parkinson's Subjective Information Pt reports poor compliance with his exercises at home. He also reports he has not increased his walking. He reports he mainly sleeps the day away . When asked what the patient would like to work on, he states he can do everything he needs to do, his usually just does it for him. Reported Pain Level Pain Score 0: Self Report Pain Score 0: Self Report Pain Score 0: Self Report Assessment PT Clinical Summary Darwin presents to therapy today for his progress report following 6 visits of skilled therapy to treat the deficits attributed to his Parkinson's. Today he does demonstrate an improvement in his gait speed and decreased time during his 5xSTS. Pt educated that improvement will be limited when there is limited carry over. Skilled physical therapy services are not indicated at this time d/ t the decreased compliance and care over at home. It was recommended that he attempt to complete his HEP daily upon discharge. Plan of Care PT Services Indicated Yes Treatment Frequency and d/c'ed Duration
== END 2021-12-02 12:42 | disposition home or self-care (01) ==
LOC: ANHPT 14:30
PROVIDERS: PCP Internal Medicine; Referring Provider Internal Medicine; Visit Provider Internal Medicine
DX: R13.10 Dysphagia, unspecified (principal); G20 Parkinson's disease
CPT/HCPCS: 92526; 92610; 97110; 97112; 97162; 97166; 97530

== ENCOUNTER 2022-08-05 15:23 | Outpatient (CLI) | payer MEDICARE, SELFPAY ==
[2022-08-05 16:19] LABS: Alanine Aminotransferase 8 U/L (6-50); Albumin Level 4.2 g/dL (3.5-5.1); Alkaline Phosphatase 114 U/L (38-126); Anion Gap 3 mmol/L (8-16); Aspartate Amino Transferase 22 U/L (17-59); Bilirubin,Total 1.1 mg/dL (0.2-1.3); Blood Urea Nitrogen 25 mg/dL (9-20); Calcium 8.6 mg/dL (8.4-10.2); Carbon Dioxide 34 mmol/L (22-30); Chloride 102 mmol/L (98-107); Estimated Glomerular Filt Rate 49; Glucose 82 mg/dL (65-110); Potassium 4.5 mmol/L (3.4-5.0); Sodium 139 mmol/L (137-145)
== END 2022-08-05 15:24 | disposition home or self-care (01) ==
PROVIDERS: PCP Family Medicine; Visit Provider Nurse Practitioner
DX: R60.9 Edema, unspecified (principal); I10 Essential (primary) hypertension
CPT/HCPCS: 36415; 80053

== ENCOUNTER 2023-07-20 12:50 | Outpatient (CLI) | payer MEDICARE, SELFPAY ==
--- NOTE | ~2023-07-20 | XR_ITS ---
EXAMINATION: XR hip LT min 2V DATE: 07/20/2023 13:30 INDICATION: Left hip pain. TECHNIQUE: 2 views of left hip were obtained. COMPARISON: None. FINDINGS: Bone alignment is normal. No fracture. There is severe lumbar spondylosis. There is mild le ft hip osteoarthritis. IMPRESSION: 1. Mild left hip osteoarthritis. Reviewed, dictated and finalized at location E.
[2023-07-20 14:32] LABS: Hemoglobin 14.9 g/dL (14.0-18.0); Mean Corpuscular Hemoglobin 29.7 pg (26-34); Mean Corpuscular Volume 95.8 fl (80-100); Mean Platelet Volume 11.9 fl (7.4-10.4); Platelet Count Result 161 k/mm3 (150-375); Red Blood Count 5.01 M/mm3 (4.6-6.20); Red Cell Distribution Width 13.1 % (11.5-14.5); White Blood Count 5.6 K/mm3 (4.5-10.0)
[2023-07-20 14:52] LABS: Albumin Level 4.2 g/dL (3.5-5.1); Alkaline Phosphatase 84 U/L (38-126); Anion Gap 6 mmol/L (4-12); Aspartate Amino Transferase 18 U/L (17-59); Bilirubin,Total 0.8 mg/dL (0.2-1.3); Blood Urea Nitrogen 17 mg/dL (9-20); Calcium 9.1 mg/dL (8.4-10.2); Carbon Dioxide 29 mmol/L (22-30); Chloride 104 mmol/L (98-107); Estimated Glomerular Filt Rate 58; Glucose 103 mg/dL (65-110); Potassium 4.4 mmol/L (3.4-5.0); Sodium 139 mmol/L (137-145)
[2023-07-20 16:32] LABS: Alanine Aminotransferase 6 U/L (6-50)
== END 2023-07-20 12:51 | disposition home or self-care (01) ==
PROVIDERS: PCP Nurse Practitioner; Visit Provider Nurse Practitioner
DX: M16.12 Unilateral primary osteoarthritis, left hip (principal); I10 Essential (primary) hypertension; D69.6 Thrombocytopenia, unspecified; N17.9 Acute kidney failure, unspecified
CPT/HCPCS: 36415; 73502; 80053; 82607; 85027

== ENCOUNTER 2023-09-27 15:55 | Outpatient (CLI) | payer MEDICARE, SELFPAY ==
[2023-09-27 20:54] LABS: Folic Acid 5.9 ng/mL (2.76->20)
== END 2023-09-27 15:56 | disposition home or self-care (01) ==
LOC: ANHLAB 15:57
PROVIDERS: PCP Nurse Practitioner; Visit Provider Student in an Organized Health Care Education/Training Program
DX: R41.89 Other symptoms and signs involving cognitive functions and awareness (principal); I10 Essential (primary) hypertension
CPT/HCPCS: 36415; 82607; 82746; 84443